=== PATIENT | female | born 1940 | race Caucasian/White ===

== ENCOUNTER 2018-04-12 17:47 | Emergency (ER) | payer MEDICARE, BC ==
[2018-04-12 17:57] VITALS: BP 141/77
--- NOTE | 2018-04-12 21:29 | EDM.PDOC ---
ED HPI GENERAL MEDICAL PROBLEM - General Chief Complaint: Fever Stated Complaint: FEVER WITH CHEMO Time Seen by Provider: 04/12/18 18:53 Source of Information: Reports: Patient History Limitations: Reports: No Limitations - History of Present Illness INITIAL COMMENTS - FREE TEXT/NARRATIVE: The patient presents with a fever. She has a history of leukemia and she is on chemotherapy. She had chemotherapy today and her temp was 99.1. She went home and took a nap and when she woke up it was 100.8. Her temp was 100.3 here without any treatment. She said she had a transfusion a few days ago. She has chills. She has a slight cough. She denies chest pain, shortness of breath, abdominal pain, nausea or vomiting. She has no dysuria or hematuria. Onset: Gradual Duration: Hour(s): Severity: Mild Improves with: Reports: None Worsens with: Reports: None Associated Symptoms: Reports: Cough, Fever/Chills. Denies: Chest Pain, Headaches, Nausea/Vomiting, Shortness of Breath - Related Data Allergies Allergy/AdvReac Type Severity Reaction Status Date / Time latex Allergy Rash Verified 09/05/16 15:06 palm oil Allergy Cannot Verified 03/27/18 08:03 Remember Penicillins Allergy Cannot Verified 09/05/16 15:06 Remember pollen extracts Allergy Cannot Verified 03/27/18 08:03 Remember Home Meds: Home Meds Acetaminophen [Tylenol] 1 - 2 tab PO Q6H PRN 04/12/18 [History] Acyclovir [Zovirax] 400 mg PO BID 04/12/18 [History] Allopurinol [Zyloprim] 300 mg PO DAILY 04/12/18 [History] Decitabine [Dacogen] 1 applic IV ASDIRECTED 04/12/18 [History] Fluconazole [Diflucan] 200 mg PO DAILY 04/12/18 [History] Levofloxacin 500 mg PO DAILY 04/12/18 [History] Levofloxacin [Levaquin] 750 mg PO DAILY #4 tab 04/12/18 [Rx] Ondansetron [Zofran] 8 mg PO Q8H PRN 04/12/18 [History] Promethazine [Phenergan] 25 mg TOP Q6H PRN 04/12/18 [History] Past Medical History HEENT History: Reports: Cataract, Impaired Vision Other HEENT History: Wears glasses Gastrointestinal History: Reports: GERD ROVING OR [employer]ER History: Reports: Oncologic (Cancer) History: Reports: Leukemia - Past Surgical History HEENT Surgical History: Reports: Cataract Surgery GI Surgical History: Reports: Appendectomy, Cholecystectomy Female Surgical History: Reports: Hysterectomy Musculoskeletal Surgical History: Reports: Knee Replacement Social & Family History - Tobacco Use Smoking Status *Q: Never Smoker - Caffeine Use Caffeine Use: Reports: Coffee, Tea - Recreational Drug Use Recreational Drug Use: No ED ROS GENERAL - Review of Systems Review Of Systems: See Below Constitutional: Reports: Fever, Chills HEENT: Reports: No Symptoms Respiratory: Reports: Cough. Denies: Shortness of Breath Cardiovascular: Reports: No Symptoms Endocrine: Reports: No Symptoms GI/Abdominal: Reports: No Symptoms : Reports: No Symptoms Musculoskeletal: Reports: No Symptoms ED EXAM, SEPSIS - Physical Exam Exam: See Below Exam Limited By: No Limitations General Appearance: Alert, No Apparent Distress Ears: Normal External Exam Nose: Normal Inspection Head: Atraumatic, Normocephalic Neck: Normal Inspection Respiratory/Chest: No Respiratory Distress, Lungs Clear, Normal Breath Sounds Cardiovascular: Regular Rate, Rhythm, No Edema, No Murmur GI/Abdominal Exam: Soft, Non-Tender, No Organomegaly, No Mass Back: Normal Inspection Extremities: Normal Inspection Neurological: Alert, Oriented, No Motor/Sensory Deficits Course - Vital Signs Last Recorded V/S: Last Vital Signs Temp 100.3 F 04/12/18 17:55 Pulse 89 04/12/18 17:55 Resp 20 04/12/18 17:55 BP 141/77 H 04/12/18 17:55 Pulse Ox 97 04/12/18 17:55 - Orders/Labs/Meds Orders: Active Orders 24 hr Category Date Time Status CXR [Chest 2V] [CR] Stat Exams 04/12/18 19:12 Taken CULTURE BLOOD [BC] Stat Lab 04/12/18 19:36 Received CULTURE BLOOD [BC] Stat Lab 04/12/18 19:44 Received UA W/MICROSCOPIC [URIN] Stat Lab 04/12/18 21:00 Ordered Blood Culture x2 Reflex Set [OM.PC] Stat Oth 04/12/18 19:12 Ordered Labs: Laboratory Tests 04/12/18 04/12/18 04/12/18 Range/Units 19:36 19:36 21:00 WBC 1.41 L* (3.98-10.04) K/mm3 RBC 3.05 L (3.98-5.22) M/mm3 Hgb 9.4 L (11.2-15.7) gm/L Hct 27.5 L (34.1-44.9) % MCV 90.2 (79.4-94.8) fl MCH 30.8 (25.6-32.2) pg MCHC 34.2 (32.2-35.5) g/dl RDW Std Deviation 47.7 H (36.4-46.3) fL Plt Count 24 L* (182-369) K/mm3 Neut % (Auto) 0 L (34.0-71.1) % Lymph % (Auto) 69.5 H (19.3-51.7) % [place] % (Auto) 29.8 H (4.7-12.5) % Eos % (Auto) 0.7 (0.7-5.8) Baso % (Auto) 0.0 L (0.1-1.2) % Neut # (Auto) 0.00 L (1.56-6.13) K/mm3 Lymph # (Auto) 0.98 L (1.18-3.74) K/mm3 [place] # (Auto) 0.42 H (0.24-0.36) K/mm3 Eos # (Auto) 0.01 L (0.04-0.36) K/mm3 Baso # (Auto) 0.00 L (0.01-0.08) K/mm3 Manual Slide Review Abnormal smear Sodium 138 (136-145) mEq/L Potassium 3.7 (3.5-5.1) mEq/L Chloride 104 (98-107) mEq/L Carbon Dioxide 24 (21-32) mEq/L Anion Gap 13.7 (5-15) BUN 18 (7-18) mg/dL Creatinine 1.0 (0.55-1.02) mg/dL Est Cr Clr Drug Dosing 43.40 mL/min Estimated GFR (MDRD) 54 (>60) mL/min BUN/Creatinine Ratio 18.0 (14-18) Glucose 115 (83-115) mg/dL Calcium 8.8 (8.5-10.1) mg/dL Total Bilirubin 0.7 (0.2-1.0) mg/dL AST 12 L (15-37) U/L ALT 11 L (14-59) U/L Alkaline Phosphatase 97 (46-116) U/L C-Reactive Protein 10.7 H* (<1.0) mg/dL Total Protein 7.6 (6.4-8.2) g/dl Albumin 3.3 L (3.4-5.0) g/dl Globulin 4.3 gm/dL Albumin/Globulin Ratio 0.8 L (1-2) Urine Color Yellow (Yellow) Urine Appearance Clear (Clear) Urine pH 6.5 (5.0-8.0) Ur Specific [place] 1.015 (1.005-1.030) Urine Protein Negative (Negative) Urine Glucose (UA) Negative (Negative) Urine Ketones Negative (Negative) Urine Occult Blood Trace-intact H (Negative) Urine Nitrite Negative (Negative) Urine Bilirubin Negative (Negative) Urine Urobilinogen 0.2 (0.2-1.0) Ur Leukocyte Esterase Negative (Negative) Urine RBC 0-5 (0-5) /hpf Urine WBC 0-5 (0-5) /hpf Ur Epithelial Cells 0-5 (0-5) /hpf Urine Bacteria Rare (FEW) /hpf Urine Mucus Not seen (FEW) /hpf - Re-Assessments/Exams Free Text/Narrative Re-Assessment/Exam: 04/12/18 21:29 I ordered a CBC, CMP, CXR, UA and blood cultures. Her WBC is low at 1.41. It was lower 4 days ago at 1.2. Her Hgb has improved to 9.4 from 7.5 a couple days ago. Her platelets have gone down lower to 24 from 30. Her CMP looks good. Her CRP was elevated at 10.7. Her UA shows no UTI. Her CXR shows a right upper lobe infiltrate. Her oxygen saturations were good at 97%. She does not want to be admitted. I called [facility] in [place] and Dr Anaya was not on. That is her oncologist but Dr Gutierrez was and he said that was fine to treat her as an outpatient and he recommended levaquin. I will dive her a dose here and a prescription for more. Departure - Departure Time of Disposition: 21:35 Disposition: Home, Self-Care 01 Condition: Good Clinical Impression: Pneumonia Qualifiers: Pneumonia type: due to unspecified organism Laterality: right Lung location: upper lobe of lung Qualified Code(s): J18.1 - Lobar pneumonia, unspecified organism - Discharge Information Prescriptions: Levofloxacin [Levaquin] 750 mg PO DAILY #4 tab Referrals: Terry Javier MD [Primary Care Provider] - 1 Week Additional Instructions: Take the levaquin daily for 4 days. You had a dose tonight your can start the prescription tomorrow. Take tylenol or motrin for any fever. Please return if you are worse. Follow up with your doctor within a week. - My Orders Last 24 Hours: My Active Orders 04/12/18 19:12 CXR [Chest 2V] [CR] Stat Blood Culture x2 Reflex Set [OM.PC] Stat 04/12/18 19:36 CULTURE BLOOD [BC] Stat 04/12/18 19:44 CULTURE BLOOD [BC] Stat 04/12/18 21:00 UA W/MICROSCOPIC [URIN] Stat - Assessment/Plan Last 24 Hours: My Active Orders 04/12/18 19:12 CXR [Chest 2V] [CR] Stat Blood Culture x2 Reflex Set [OM.PC] Stat 04/12/18 19:36 CULTURE BLOOD [BC] Stat 04/12/18 19:44 CULTURE BLOOD [BC] Stat 04/12/18 21:00 UA W/MICROSCOPIC [URIN] Stat
[2018-04-12] MEDS ORDERED: Levofloxacin 750 MG Tab PO ONE (21:33)
--- NOTE | 2018-04-15 11:15 | CR ---
Chest: Two views of the chest were obtained. Comparison: Prior chest x-ray of 09/05/16. Parenchymal density is noted within the upper right chest. Lungs otherwise are clear. Infusion port is seen entering from the left side. Heart size is normal. Mild tortuosity of the thoracic aorta is seen. Diaphragms are flattened on the lateral view compatible with emphysematous change. Surgical clips are seen within the upper right abdomen. Impression: 1. Parenchymal density within the right upper chest most likely representing pneumonia. Recommend repeat study several weeks after clinical therapy is complete to make sure findings resolve. 2. Emphysematous change and other incidental findings. Diagnostic code #3
== END 2018-04-12 21:45 | disposition home or self-care (01) ==
LOC: JD.ED 17:47
DX: J18.9 Pneumonia, unspecified organism (principal); K21.9 Gastro-esophageal reflux disease without esophagitis; Z91.040 Latex allergy status; Z88.0 Allergy status to penicillin; Z91.048 Other nonmedicinal substance allergy status; Z79.899 Other long term (current) drug therapy
CPT/HCPCS: 36415; 71046; 80053; 81001; 85025; 86140; 87040; 99284; A9270

== ENCOUNTER 2018-04-19 20:55 | Emergency (ER) | payer MEDICARE, BC ==
[2018-04-19] MEDS ORDERED: Sodium Chloride 0.9% 1,000 ML IV ONE (21:28)
[2018-04-19] MEDS: Sodium Chloride 0.9% 10 ML Syringe FLUSH PRN ×2 (21:36→22:37)
--- NOTE | 2018-04-19 21:48 | EDM.PDOC ---
ED HPI GENERAL MEDICAL PROBLEM - General Chief Complaint: Chest Pain Stated Complaint: FEVER Time Seen by Provider: 04/19/18 21:39 Source of Information: Reports: Patient History Limitations: Reports: No Limitations - History of Present Illness INITIAL COMMENTS - FREE TEXT/NARRATIVE: 77-year-old female presents for evaluation and treatment of fever. Patient is currently being treated for AML. She is receiving chemotherapy this time. Oncologist is Dr. Anaya in [place]. She reports this evening she appreciated a fever, highest about 100.8 at home. She has not been taking Tylenol or Motrin. She is complaining of some pain to the right anterior lateral chest that radiates towards her sternum as well as some pain to her right back between her spine her shoulder blade. Reports lying down improves the back pain. Reports a nonproductive cough. She denies any shortness of breath. No nausea, vomiting or abdominal pain. Reports some constipation which is not have been having blood in her stool. Patient was seen in the ED 1 week ago. She was found to have a pneumonia to her right upper lung. She is currently on Diflucan, acyclovir and Levaquin daily. She was started on Levaquin 750 mg for 5 days. She has completed this. She continues to take her Levaquin 500 mg daily that she was on prophylactically. Chest Pain Score (Numeric/FACES): 5 Right Shoulder Pain Score (Numeric/FACES): 6 - Related Data Allergies Allergy/AdvReac Type Severity Reaction Status Date / Time latex Allergy Rash Verified 04/19/18 21:06 palm oil Allergy Cannot Verified 04/19/18 21:06 Remember Penicillins Allergy Cannot Verified 04/19/18 21:06 Remember pollen extracts Allergy Cannot Verified 04/19/18 21:06 Remember Home Meds: Home Meds Acetaminophen [Tylenol] 1 - 2 tab PO Q6H PRN 04/12/18 [History] Acyclovir [Zovirax] 400 mg PO BID 04/12/18 [History] Allopurinol [Zyloprim] 300 mg PO DAILY 04/12/18 [History] Decitabine [Dacogen] 1 applic IV ASDIRECTED 04/12/18 [History] Fluconazole [Diflucan] 200 mg PO DAILY 04/12/18 [History] Levofloxacin 500 mg PO DAILY 04/12/18 [History] Levofloxacin [Levaquin] 750 mg PO DAILY #4 tab 04/12/18 [Rx] Ondansetron [Zofran] 8 mg PO Q8H PRN 04/12/18 [History] Promethazine [Phenergan] 25 mg TOP Q6H PRN 04/12/18 [History] Past Medical History HEENT History: Reports: Cataract, Impaired Vision Other HEENT History: Wears glasses Gastrointestinal History: Reports: GERD [employer]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 Denies: Shortness of Breath, Sputum Cardiovascular: Reports: Chest Pain (right anteriorlateral chest) GI/Abdominal: Denies: Abdominal Pain, Nausea, Vomiting Musculoskeletal: Reports: Back Pain (upper back in between spine and shoulder blade) ED EXAM, GENERAL - Physical Exam Exam: See Below Exam Limited By: No Limitations General Appearance: Alert, WD/WN, No Apparent Distress Eye Exam: Bilateral Eye: Normal Inspection Nose: Normal Inspection Throat/Mouth: Normal Inspection, Normal Lips, Normal Voice, No Airway Compromise Respiratory/Chest: No Respiratory Distress, Lungs Clear, Normal Breath Sounds Cardiovascular: Normal Peripheral Pulses, Regular Rate, Rhythm, No Murmur Neurological: Alert, Oriented, Normal Cognition Psychiatric: Normal Affect, Normal Mood Skin Exam: Normal Color, Diaphoretic EKG INTERPRETATION EKG Date: 04/19/18 Time: 21:05 Rhythm: NSR Rate (Beats/Min): 84 [place]: Normal P-Wave: Present QRS: Normal ST-T: Normal QT: Normal EKG Interpretation Comments: NSR at84 bpm[address] No acute [address]-T wave changes. No ischemia noted. Old anteroseptal Mi. Reviewed by myself and Dr. Larose. Course - Vital Signs Last Recorded V/S: Last Vital Signs Temp 98.5 F 04/19/18 21:06 Pulse 76 04/19/18 23:00 Resp 27 H 04/19/18 23:00 BP 127/96 H 04/19/18 21:06 Pulse Ox 97 04/19/18 23:00 - Orders/Labs/Meds Orders: Active Orders 24 hr Category Date Time Status Cardiac Monitoring [RC] . DIRECTED Care 04/19/18 21:28 Active Peripheral IV Care [RC] . DIRECTED Care 04/19/18 21:30 Active Chest PE [Ang Chest] [CT] Stat Exams 04/19/18 21:32 Taken CULTURE BLOOD [BC] Stat Lab 04/19/18 21:40 Received CULTURE BLOOD [BC] Stat Lab 04/19/18 21:50 Received CULTURE URINE [RM] Stat Lab 04/20/18 00:07 Ordered RED BLOOD CELLS LP [BBK] Stat Lab 04/20/18 00:23 Ordered TYPE AND SCREEN [BBK] Stat Lab 04/20/18 00:11 Ordered UA W/MICROSCOPIC [URIN] Stat Lab 04/20/18 00:07 Ordered Cefepime [Maxipime in D5W 2 GM/50 ML] 2 gm Med 04/20/18 00:11 Ordered Premix Bag 1 bag IV ONETIME Sodium Chloride 0.9% [Normal Saline] 250 ml Med 04/19/18 22:00 Active IV ASDIRECTED Sodium Chloride 0.9% [Saline Flush] Med 04/19/18 21:28 Active 10 ml FLUSH ASDIRECTED PRN Vancomycin 1 gm Med 04/20/18 00:20 Ordered Sodium Chloride 0.9% [Normal Saline] 250 ml IV ONETIME Blood Culture x2 Reflex Set [OM.PC] Stat Oth 04/19/18 21:25 Ordered Peripheral IV Insertion Adult [OM.PC] Routine Oth 04/19/18 21:28 Ordered Transfuse Red Blood Cells [COMM] Stat Oth 04/20/18 00:23 Ordered Transfuse Red Blood Cells [COMM] Stat Oth 04/20/18 00:23 Ordered Medication Orders Sodium Chloride (Normal Saline) 250 mls @ 75 mls/hr IV ASDIRECTED LESIA Cefepime HCl 2 gm/ Premix 50 mls @ 100 mls/hr IV ONETIME ONE Stop: 04/20/18 00:40 Vancomycin HCl 1 gm/ Sodium (Chloride) 250 mls @ 250 mls/hr IV ONETIME ONE Stop: 04/20/18 01:19 Sodium Chloride (Saline Flush) 10 ml FLUSH ASDIRECTED PRN PRN Reason: Keep Vein Open Last Admin: 04/19/18 22:37 Dose: 10 ml Admin: 04/19/18 21:36 Dose: 10 ml Labs: Laboratory Tests 04/19/18 04/19/18 04/19/18 Range/Units 21:40 21:40 21:40 WBC 0.94 L* (3.98-10.04) K/mm3 RBC 2.44 L (3.98-5.22) M/mm3 Hgb 7.5 L (11.2-15.7) gm/L Hct 22.0 L (34.1-44.9) % MCV 90.2 (79.4-94.8) fl MCH 30.7 (25.6-32.2) pg MCHC 34.1 (32.2-35.5) g/dl RDW Std Deviation 44.5 (36.4-46.3) fL Plt Count 14 L* (182-369) K/mm3 Neutrophils % (Manual) 4 L (40-60) % Band Neutrophils % 0 (0-10) % Lymphocytes % (Manual) 96 H (20-40) % Atypical Lymphs % 0 % Monocytes % (Manual) 0 L (2-10) % Eosinophils % (Manual) 0 L (0.7-5.8) % Basophils % (Manual) 0 L (0.1-1.2) Platelet Estimate Marked dec Plt Morphology Comment Normal RBC Morph Comment Normal Sodium 134 L (136-145) mEq/L Potassium 3.6 (3.5-5.1) mEq/L Chloride 101 (98-107) mEq/L Carbon Dioxide 24 (21-32) mEq/L Anion Gap 12.6 (5-15) BUN 17 (7-18) mg/dL Creatinine 1.0 (0.55-1.02) mg/dL Est Cr Clr Drug Dosing 43.40 mL/min Estimated GFR (MDRD) 54 (>60) mL/min BUN/Creatinine Ratio 17.0 (14-18) Glucose 135 H (83-115) mg/dL Lactic Acid 0.6 (0.4-2.0) mmol/L Calcium 8.3 L (8.5-10.1) mg/dL Total Bilirubin 0.4 (0.2-1.0) mg/dL AST 12 L (15-37) U/L ALT 15 (14-59) U/L Alkaline Phosphatase 88 (46-116) U/L C-Reactive Protein 17.5 H* (<1.0) mg/dL Total Protein 6.8 (6.4-8.2) g/dl Albumin 2.8 L (3.4-5.0) g/dl Globulin 4.0 gm/dL Albumin/Globulin Ratio 0.7 L (1-2) Meds: Medications Generic Name Dose Route Start Last Admin Trade Name Freq PRN Reason Stop Dose Admin Sodium Chloride 250 mls @ 75 mls/hr 04/19/18 22:00 Normal Saline IV ASDIRECTED LESIA Cefepime HCl 2 gm/ Premix 50 mls @ 100 mls/hr 04/20/18 00:11 IV 04/20/18 00:40 ONETIME ONE Vancomycin HCl 1 gm/ Sodium 250 mls @ 250 mls/hr 04/20/18 00:20 Chloride IV 04/20/18 01:19 ONETIME ONE Sodium Chloride 10 ml 04/19/18 21:28 04/19/18 22:37 Saline Flush FLUSH 10 ml ASDIRECTED PRN Administration Keep Vein Open Discontinued Medications Generic Name Dose Route Start Last Admin Trade Name Freq PRN Reason Stop Dose Admin Sodium Chloride 1,000 mls @ 500 mls/hr 04/19/18 21:28 04/19/18 21:36 Normal Saline IV 04/19/18 23:27 500 mls/hr ONETIME ONE Administration Ceftriaxone Sodium 2 gm/ 100 mls @ 100 mls/hr 04/19/18 22:49 04/19/18 22:55 Sodium Chloride IV 04/19/18 23:48 100 mls/hr ONETIME ONE Administration Iopamidol 100 ml 04/19/18 21:50 04/19/18 22:37 Isovue-370 (76%) IVPUSH 04/19/18 21:51 100 ml ONETIME ONE Administration Vancomycin HCl 1 dose 04/20/18 00:16 Pharmacy To Dose - Vancomycin .XX 04/20/18 00:17 ONETIME ONE - Radiology Interpretation Free Text/Narrative:: CT of the chest with IV contrast impression per vrad: left upper lobe area of atelectasis. Large right upp lobe infiltrate with right hilar lymphadenopathy. This most likely represents a pneumonia. Clinical correlation as well as followup x-rays are suggested. No pulmonary emboli. - Re-Assessments/Exams Free Text/Narrative Re-Assessment/Exam: 04/20/18 00:05 spoke with the patient and her family. I do feel she is to sick to go home tonight and needs admission. Spoke with Dr. Osborne hospitalist on, feels she would be better served in [place]. Patient is agreeable to going to [place]. Patient is a full code. 04/20/18 00:[address] Lamar agrees to accept the patient. She will go by ground ambulance. Asked that we give vancomycin and cefepime prior to leaving. He asked that we give her 1 unit of blood. I spoke with oncologist, Dr. Morgan. [place] that her platelets are low but would not need to be transferred until they're below 10. She will likely need transfusion tomorrow. I did inform them that we do not have any platelets here. Plan will be to give the vancomycin and cefepime prior to leaving. When she has the blood going we will send to [place]. Departure - Departure Time of Disposition: 00:33 Disposition: DC/Tfer to [facility] 02 Condition: Serious Clinical Impression: Pancytopenia due to chemotherapy Pneumonia Qualifiers: Pneumonia type: due to unspecified organism Laterality: right Lung location: upper lobe of lung Qualified Code(s): J18.1 - Lobar pneumonia, unspecified organism - Discharge Information *PRESCRIPTION DRUG MONITORING PROGRAM REVIEWED*: No *COPY OF PRESCRIPTION DRUG MONITORING REPORT IN PATIENT FAVIOLA: No Referrals: Bryson Anaya MD [Primary Care Provider] - Forms: ED Department Discharge Additional Instructions: Patient to go by ground ambulance to [facility] in [place]. Dr. Machuca accepting. - My Orders Last 24 Hours: My Active Orders 04/19/18 21:25 Blood Culture x2 Reflex Set [OM.PC] Stat 04/19/18 21:28 Cardiac Monitoring [RC] . DIRECTED Sodium Chloride 0.9% [Saline Flush] 10 ml FLUSH ASDIRECTED PRN Peripheral IV Insertion Adult [OM.PC] Routine 04/19/18 21:30 Peripheral IV Care [RC] . DIRECTED 04/19/18 21:32 Chest PE [Ang Chest] [CT] Stat 04/19/18 21:40 CULTURE BLOOD [BC] Stat 04/19/18 21:50 CULTURE BLOOD [BC] Stat 04/19/18 22:00 Sodium Chloride 0.9% [Normal Saline] 250 ml IV ASDIRECTED 04/20/18 00:07 CULTURE URINE [RM] Stat UA W/MICROSCOPIC [URIN] Stat 04/20/18 00:11 TYPE AND SCREEN [BBK] Stat Cefepime [Maxipime in D5W 2 GM/50 ML] 2 gm Premix Bag 1 bag IV ONETIME 04/20/18 00:20 Vancomycin 1 gm Sodium Chloride 0.9% [Normal Saline] 250 ml IV ONETIME 04/20/18 00:23 RED BLOOD CELLS LP [BBK] Stat Transfuse Red Blood Cells [COMM] Stat Transfuse Red Blood Cells [COMM] Stat - Assessment/Plan Last 24 Hours: My Active Orders 04/19/18 21:25 Blood Culture x2 Reflex Set [OM.PC] Stat 04/19/18 21:28 Cardiac Monitoring [RC] . DIRECTED Sodium Chloride 0.9% [Saline Flush] 10 ml FLUSH ASDIRECTED PRN Peripheral IV Insertion Adult [OM.PC] Routine 04/19/18 21:30 Peripheral IV Care [RC] . DIRECTED 04/19/18 21:32 Chest PE [Ang Chest] [CT] Stat 04/19/18 21:40 CULTURE BLOOD [BC] Stat 04/19/18 21:50 CULTURE BLOOD [BC] Stat 04/19/18 22:00 Sodium Chloride 0.9% [Normal Saline] 250 ml IV ASDIRECTED 04/20/18 00:07 CULTURE URINE [RM] Stat UA W/MICROSCOPIC [URIN] Stat 04/20/18 00:11 TYPE AND SCREEN [BBK] Stat Cefepime [Maxipime in D5W 2 GM/50 ML] 2 gm Premix Bag 1 bag IV ONETIME 04/20/18 00:20 Vancomycin 1 gm Sodium Chloride 0.9% [Normal Saline] 250 ml IV ONETIME 04/20/18 00:23 RED BLOOD CELLS LP [BBK] Stat Transfuse Red Blood Cells [COMM] Stat Transfuse Red Blood Cells [COMM] Stat
[2018-04-19] MEDS ORDERED: Iopamidol 755 Mg/ML 100 ML Bottle IVPUSH ONE (21:50)
[2018-04-19] MEDS ORDERED: Sodium Chloride 0.9% 250 ML IV SCH (22:00)
[2018-04-19] MEDS ORDERED: cefTRIAXone 2 GM in Sodium Chloride 0.9% 100 ML IV ONE (22:49)
[2018-04-20] MEDS ORDERED: Cefepime 2 GM in Premix Bag 1 BAG IV ONE (00:11)
[2018-04-20 01:44] VITALS: BP 112/75
--- NOTE | 2018-04-22 10:03 | CT ---
CT chest Technique: Multiple axial sections were obtained from above the lung apices inferiorly through the lung bases. Intravenous contrast was utilized. Study has been performed as a pulmonary angiogram protocol. Comparison: Prior CT chest performed as an angiogram protocol dated 09/05/16. Findings: Pulmonary arteries show no filling defects to indicate pulmonary embolism. Parenchymal density noted within the right upper lung. Minimal atelectasis within the left upper lung is noted. Minimal parenchymal density is seen within the left base as well as lingula which are felt to be due to small areas of scarring or atelectasis. Mediastinum and hilar regions show no adenopathy or mass. Mild coronary artery calcification is seen. No pericardial thickening is seen. Small hiatal hernia is noted. Small portion of the visualized upper abdominal structures shows prior cholecystectomy. No axillary adenopathy is seen. Bone window settings were reviewed showing scattered degenerative change within the spine. Impression: 1. Focal right upper lobe parenchymal density most likely due to pneumonia although follow-up recommended by chest x-ray after clinical therapy is complete to make sure findings resolve and does not represent other abnormality. 2. No findings of pulmonary embolism. Other incidental findings. Diagnostic code #9 I agree with preliminary report issued by [facility] ([facility] report finalized on 04/20/18, 12:17 AM Central Time)
== END 2018-04-20 02:14 ==
LOC: JD.ED 20:55
DX: J18.1 Lobar pneumonia, unspecified organism (principal); D61.810 Antineoplastic chemotherapy induced pancytopenia; K21.9 Gastro-esophageal reflux disease without esophagitis; Z91.040 Latex allergy status; Z79.899 Other long term (current) drug therapy; Z90.710 Acquired absence of both cervix and uterus
CPT/HCPCS: 36415; 36430; 71275; 80053; 81001; 83605; 85007; 85027; 86140; 86850; 86900; 86901; 86922; 87040; 87086; 93005; 96361; 96365; 96367; 96368; 99285; J0692; J0696; J3370; J7030; J7040; J7050; P9016; Q9967; 93010

== ENCOUNTER 2018-11-26 14:50 | Inpatient (IN) | payer MEDICARE, BC ==
[2018-11-26] MEDS ORDERED: Acetaminophen 325 MG Tab PO ONE (15:40)
[2018-11-26] MEDS ORDERED: Meropenem 1 GM in Sodium Chloride 0.9% 100 ML IV ONE (15:41)
[2018-11-26] MEDS ORDERED: Sodium Chloride 0.9% 1,000 ML IV ONE (15:48)
--- NOTE | 2018-11-26 17:13 | EDM.PDOC ---
ED HPI GENERAL MEDICAL PROBLEM - General Chief Complaint: Cardiovascular Problem Stated Complaint: TACHYCARDIA/FEVER Time Seen by Provider: 11/26/18 15:14 Source of Information: Reports: Patient, Provider History Limitations: Reports: No Limitations - History of Present Illness INITIAL COMMENTS - FREE TEXT/NARRATIVE: The patient presents from surgery for a fever, confusion and tachycardia. She has a history of AML. She is not being treated at this point. She is advanced but she is getting transfusions from Dr Anaya for anemia, leukopenia and thrombocytopenia. She was getting platelets and PRBCs when the fever started. She did get confused right away. Dr Anaya repeated some labs and her WBC was 0.8 and Hgb was 8.3. Her platelets were 4. Her CMP looked good. I called him and he recommended blood cultures and mirepenum until the cultures came back normal. She has no chest pain. She has been a little short of breath. She has no abdominal pain, nausea or vomiting. She has no dysuria. Onset: Sudden Duration: Hour(s): Severity: Moderate Improves with: Reports: None Worsens with: Reports: None Associated Symptoms: Reports: Fever/Chills. Denies: Chest Pain, Cough, Headaches, Nausea/Vomiting, Shortness of Breath - Related Data Allergies Allergy/AdvReac Type Severity Reaction Status Date / Time latex Allergy Rash Verified 11/26/18 11:45 palm oil Allergy Cannot Verified 11/26/18 11:45 Remember Penicillins Allergy Cannot Verified 11/26/18 11:45 Remember pollen extracts Allergy Cannot Verified 11/26/18 11:45 Remember Home Meds: Home Meds Acyclovir [Zovirax] 400 mg PO BID 04/12/18 [History] Fluconazole [Diflucan] 200 mg PO DAILY 04/12/18 [History] Levofloxacin 500 mg PO DAILY 04/12/18 [History] Past Medical History HEENT History: Reports: Impaired Vision Other HEENT History: Wears glasses Gastrointestinal History: Reports: GERD [employer] History: Reports: Endocrine/Metabolic History: Reports: Other (See Below) Oncologic (Cancer) History: Reports: Leukemia - Past Surgical History HEENT Surgical History: Reports: Cataract Surgery, Tonsillectomy Cardiovascular Surgical History: Reports: Other (See Below) GI Surgical History: Reports: Appendectomy, Cholecystectomy Female Surgical History: Reports: Hysterectomy, Salpingo-Oophorectomy Musculoskeletal Surgical History: Reports: Knee Replacement Oncologic Surgical History: Reports: Other (See Below) Social & Family History - Family History Family Medical History: Noncontributory - Tobacco Use Smoking Status *Q: Never Smoker - Caffeine Use Caffeine Use: Reports: Coffee - Recreational Drug Use Recreational Drug Use: No - Living Situation & Occupation Living situation: Reports: , Alone Occupation: Retired ED ROS GENERAL - Review of Systems Review Of Systems: See Below Constitutional: Reports: Fever, Chills HEENT: Reports: No Symptoms Respiratory: Reports: No Symptoms Cardiovascular: Reports: No Symptoms Endocrine: Reports: No Symptoms GI/Abdominal: Reports: No Symptoms : Reports: No Symptoms Musculoskeletal: Reports: No Symptoms ED EXAM, GENERAL - Physical Exam Exam: See Below Exam Limited By: No Limitations General Appearance: Alert, No Apparent Distress Ears: Normal External Exam Nose: Normal Inspection Head: Atraumatic, Normocephalic Neck: Normal Inspection Respiratory/Chest: No Respiratory Distress, Lungs Clear, Normal Breath Sounds Cardiovascular: Regular Rate, Rhythm, No Edema, No Murmur GI/Abdominal: Soft, Non-Tender, No Organomegaly, No Mass Neurological: Alert, Oriented, No Motor/Sensory Deficits Skin Exam: Rash (petichia) Course - Vital Signs Last Recorded V/S: Last Vital Signs Temp 100.2 F 11/26/18 15:06 Pulse 140 H 11/26/18 15:06 Resp 24 H 11/26/18 15:06 BP 140/78 11/26/18 15:06 Pulse Ox 96 11/26/18 15:06 - Orders/Labs/Meds Orders: Active Orders 24 hr Category Date Time Status Admission Status [Patient Status] [ADT] Routine ADT 11/26/18 17:15 Active CULTURE BLOOD [BC] Stat Lab 11/26/18 15:41 Ordered CULTURE BLOOD [BC] Stat Lab 11/26/18 15:41 Ordered Blood Culture x2 Reflex Set [OM.PC] Stat Oth 11/26/18 15:41 Ordered Meds: Medications Discontinued Medications Generic Name Dose Route Start Last Admin Trade Name Freq PRN Reason Stop Dose Admin Acetaminophen 325 mg 11/26/18 15:40 11/26/18 16:26 Tylenol PO 11/26/18 15:41 325 mg NOW ONE Administration Meropenem 1 gm/ Sodium 100 mls @ 200 mls/hr 11/26/18 15:41 11/26/18 16:24 Chloride IV 11/26/18 16:10 200 mls/hr ONETIME ONE Administration Sodium Chloride 1,000 mls @ 1,000 mls/hr 11/26/18 15:48 11/26/18 16:22 Normal Saline IV 11/26/18 16:47 1,000 mls/hr ONETIME ONE Administration - Re-Assessments/Exams Free Text/Narrative Re-Assessment/Exam: 11/26/18 17:22 Her port was accessed. I ordered an influenza and blood cultures alone with merapenum. I called Dr Peter and he agreed to the admission. Departure - Departure Time of Disposition: 17:25 Disposition: Admitted As Inpatient 65 Condition: Serious Clinical Impression: Neutropenic fever, Pancytopenia, Tachycardia Referrals: Tony Anderson MD [Primary Care Provider] - Forms: ED Department Discharge - My Orders Last 24 Hours: My Active Orders 11/26/18 15:41 CULTURE BLOOD [BC] Stat CULTURE BLOOD [BC] Stat Blood Culture x2 Reflex Set [OM.PC] Stat 11/26/18 17:15 Admission Status [Patient Status] [ADT] Routine - Assessment/Plan Last 24 Hours: My Active Orders 11/26/18 15:41 CULTURE BLOOD [BC] Stat CULTURE BLOOD [BC] Stat Blood Culture x2 Reflex Set [OM.PC] Stat 11/26/18 17:15 Admission Status [Patient Status] [ADT] Routine
--- NOTE | 2018-11-26 20:21 | PCM.HP ---
H&P History of Present Illness - General Date of Service: 11/26/18 Admit Problem/Dx: Admission Diagnosis/Problem Admission Diagnosis/Problem Neutropenia Source of Information: Patient, Old Records, Provider History Limitations: Reports: No Limitations - History of Present Illness Initial Comments - Free Text/Narative: This is a 78 yo female with past medical h/o AML (currently not being treated), GERD, appendectomy, cholecystectomy who comes in for possible transfusion reaction. The patient c/o fever, confusion, tachycardia, SOB. She was getting platelets and PRBCs when the fever and confusion started. She is getting transfusions from Dr. Anaya for anemia, leukopenia and thrombocytopenia. She denies and chest pain, abdominal pain, N/V/D, or other GI/ complaints. Initial workup done with Dr. Anaya. CBC remarkable for WBC 0.8, Hgb 8.3, Plt 4. Her chemistry was unremarkable. Influenza negative in the ED. She is subsequently admitted to the medical floor. She is a Full Code. PCP is Dr. Anderson. - Related Data Allergies/Adverse Reactions: Allergies Allergy/AdvReac Type Severity Reaction Status Date / Time latex Allergy Rash Verified 11/26/18 17:41 palm oil Allergy Cannot Verified 11/26/18 17:41 Remember Penicillins Allergy Cannot Verified 11/26/18 17:41 Remember pollen extracts Allergy Cannot Verified 11/26/18 17:41 Remember Home Medications: Home Meds Acyclovir [Zovirax] 400 mg PO BID 04/12/18 [History] Fluconazole [Diflucan] 200 mg PO DAILY 04/12/18 [History] Levofloxacin 500 mg PO DAILY 04/12/18 [History] Past Medical History HEENT History: Reports: Impaired Vision Other HEENT History: Wears glasses Gastrointestinal History: Reports: GERD [employer] History: Reports: Endocrine/Metabolic History: Reports: Other (See Below) Oncologic (Cancer) History: Reports: Leukemia - Past Surgical History HEENT Surgical History: Reports: Cataract Surgery, Tonsillectomy Cardiovascular Surgical History: Reports: Other (See Below) GI Surgical History: Reports: Appendectomy, Cholecystectomy Female Surgical History: Reports: Hysterectomy, Salpingo-Oophorectomy Musculoskeletal Surgical History: Reports: Knee Replacement Oncologic Surgical History: Reports: Other (See Below) Social & Family History - Family History Family Medical History: Noncontributory - Tobacco Use Smoking Status *Q: Never Smoker - Caffeine Use Caffeine Use: Reports: Coffee - Recreational Drug Use Recreational Drug Use: No - Living Situation & Occupation Living situation: Reports: , Alone Occupation: Retired H&P Review of Systems - Review of Systems: Review Of Systems: See Below General: Reports: Fever, Chills HEENT: Reports: Other (jaw pain, black tongue) Pulmonary: Reports: No Symptoms Cardiovascular: Reports: No Symptoms Gastrointestinal: Reports: No Symptoms Genitourinary: Reports: No Symptoms Musculoskeletal: Reports: No Symptoms Skin: Reports: No Symptoms Psychiatric: Reports: No Symptoms Neurological: Reports: No Symptoms Hematologic/Lymphatic: Reports: Anemia Immunologic: Reports: No Symptoms Exam - Exam Exam: See Below - Vital Signs Vital Signs: Last Vital Signs Temp 97.7 F 11/26/18 19:33 Pulse 75 11/26/18 19:33 Resp 22 H 11/26/18 19:33 BP 115/65 11/26/18 19:33 Pulse Ox 97 11/26/18 19:33 Weight: 131 lb 9.6 oz - Exam Quality Assessment: DVT Prophylaxis General: Alert, Oriented, 4 HEENT: Conjunctiva Clear, EACs Clear, EOMI, Hearing Intact, Mucosa Moist & [place] , Nares Patent, Normal Nasal Septum, Posterior Pharynx Clear, Other (tongue is black), PERRLA Neck: Supple, Trachea Midline, 2 Lungs: Clear to Auscultation, Normal Respiratory Effort Cardiovascular: Regular Rate, Regular Rhythm GI/Abdominal Exam: Normal Bowel Sounds, Soft, Non-Tender, No Organomegaly, No Distention, No Abnormal Bruit, No Mass, Pelvis Stable (Female) Exam: Deferred Rectal (Female) Exam: Deferred Back Exam: Normal Inspection Extremities: Normal Inspection, Normal Range of Motion, Non-Tender, No Pedal Edema, Normal Capillary Refill Peripheral Pulses: 2+: Posterior Tibial (L), Posterior Tibial (R), Dorsalis Pedis (L), Dorsalis Pedis (R) Skin: Petechia (L arm and leg) Neurological: Cranial Nerves Intact (grossly) Neuro Extensive - Mental Status: Alert, Oriented x3, Normal Mood/Affect, Normal Cognition, Memory Intact Psychiatric: Alert, Normal Affect, Normal Mood - Patient Data Venkata Results Last 24 hrs: Microbiology 11/26/18 16:07 Influenza Type A Antigen Screen - Final Nasopharyngeal Swab NEGATIVE INFLUENZA A VIRUS AG Influenza Type B Antigen Screen - Final NEGATIVE INFLUENZA B VIRUS AG - Problem List (1) Neutropenic fever SNOMED Code(s): 331656157 ICD Code: D70.9 - NEUTROPENIA, UNSPECIFIED; R50.81 - FEVER PRESENTING WITH CONDITIONS CLASSIFIED ELSEWHERE Status: Acute Priority: High Current Visit : Yes (2) Pancytopenia SNOMED Code(s): 880695975 ICD Code: D61.818 - OTHER PANCYTOPENIA Status: Acute Priority: High Current Visit: Yes (3) Tachycardia SNOMED Code(s): 9129503 ICD Code: R00.0 - TACHYCARDIA, UNSPECIFIED Status: Acute Priority: High Current Visit: Yes Problem List Initiated/Reviewed/Updated: Yes Orders Last 24hrs: Active Orders 24 hr Category Date Time Status Admission Status [Patient Status] [ADT] Routine ADT 11/26/18 17:15 Active CULTURE BLOOD [BC] Stat Lab 11/26/18 15:41 Ordered CULTURE BLOOD [BC] Stat Lab 11/26/18 15:41 Ordered Blood Culture x2 Reflex Set [OM.PC] Stat Oth 11/26/18 15:41 Ordered Assessment/Plan Comment:: Assessment/Plan: Acute: Neutropenic Fever * 2/2 plt infusion reaction * She was getting platelets and PRBCs when the fever and confusion started * Risk factor: h/o infusion reaction, AML * Oncologist Dr. Anaya recommendations per ED: * Blood cultures pending * Meropenem until the cultures came back normal Tachycardia * 2/2 above * Monitor Pancytopenia * Acute on Chronic * 2/2 AML * Dr. Anaya labs showed WBC 0.8, Hgb 8.3, plts 4 * Gets transfusions from Dr. Anaya for anemia, leukopenia and thrombocytopenia Jaw Pain/Black tongue * Pt c/o jaw pain, "blisters" inside her mouth, black tongue that brushing does not get rid of * She is unsure for how long she has had these symptoms * Difficult to eat hard foods d/t pain; denies sensitivity to hot/cold * Unsure of last visit to PCP or dentist * States oral care is good, except difficult d/t bleeding * Recommend f/u with PCP and dentist Chronic: AML (currently not being treated) Anemia, Leukopenia and Thrombocytopenia GERD h/o appendectomy h/o cholecystectomy Plan: Admit to Medical Floor Neutropenic Precautions Routine AM Labs Heart Healthy Diet DVT/GI prophylaxis CM/SW PT/OT Code Status: Full Code; PCP: Dr. Anderson
[2018-11-26] MEDS ORDERED: Acetaminophen 325 MG Tab PO PRN (20:47)
[2018-11-26] MEDS ORDERED: Albuterol/Ipratropium 3.0-0.5 MG/3 ML Neb Soln NEB PRN (20:47)
[2018-11-26] MEDS ORDERED: Magnesium Hydroxide 400 MG/5 ML Susp 30 ML Cup PO PRN (20:47)
[2018-11-26] MEDS ORDERED: Docusate Sodium 100 MG Cap PO PRN (20:47)
[2018-11-26] MEDS ORDERED: HYDROmorphone 1 MG/ML Syringe IVPUSH PRN (20:47)
[2018-11-26] MEDS ORDERED: Bisacodyl 5 MG Tab PO PRN (20:47)
[2018-11-26] MEDS ORDERED: Polyethylene Glycol 3350 Powder 17 GM Packet PO PRN (20:47)
[2018-11-26] MEDS ORDERED: Albuterol 0.083% 2.5 MG/3 ML Neb Soln NEB PRN (20:47)
[2018-11-26] MEDS ORDERED: Promethazine 6.25 MG in Sodium Chloride 0.9% 50 ML IV PRN (21:08)
[2018-11-26] MEDS ORDERED: Promethazine 25 MG Tab PO PRN (21:08)
[2018-11-26] MEDS: Saccharomyces Boulardii (Probiotic) 250 MG Cap PO SCH (22:09)
[2018-11-26] MEDS: Famotidine 20 MG Tab PO SCH (22:09)
[2018-11-26] MEDS ORDERED: Metoprolol Tartrate 5 MG/5 ML SDV IVPUSH PRN (23:47)
[2018-11-27] MEDS ORDERED: Meropenem 1 GM in Sodium Chloride 0.9% 100 ML IV SCH ×2
[2018-11-27] MEDS: Meropenem Premix 500 MG in Premix Bag 1 BAG IV SCH ×3 (01:15→15:24)
[2018-11-27] MEDS: Sodium Chloride 0.9% 1,000 ML IV SCH ×2 (01:15→11:53)
[2018-11-27] MEDS ORDERED: diphenhydrAMINE 50 MG/ML SDV IVPUSH ONE (09:23)
[2018-11-27] MEDS ORDERED: Famotidine 20 MG/2 ML SDV IVPUSH ONE (09:23)
--- NOTE | 2018-11-27 09:25 | PCM.SN ---
- Free Text/Narrative Note: Patient seen and examined with daughter at bedside. Updated them abut her labs, clinical status as well as answered all their questions. She reports tongue and neck swelling but not appreciable on examination. She is however started on intravenous steroid, H1B and H2B. Informed SW/CM to further inquire abut her code status. She may be able to go once blood culture is negative.
[2018-11-27] MEDS: Famotidine 20 MG Tab PO SCH ×2 (09:38→20:49)
[2018-11-27] MEDS: Fluconazole 100 MG Tab PO SCH (09:40)
[2018-11-27] MEDS: Acyclovir 200 MG Cap PO SCH ×2 (09:40→20:48)
[2018-11-27] MEDS: Saccharomyces Boulardii (Probiotic) 250 MG Cap PO SCH ×2 (09:40→20:49)
[2018-11-27] MEDS: Dexamethasone 4 MG/ML SDV IVPUSH SCH ×2 (09:56→17:09)
[2018-11-27] MEDS: Furosemide 20 MG/2 ML VIAL IVPUSH ONE (16:57)
--- NOTE | 2018-11-27 20:44 | PCM.PN ---
- General Info Date of Service: 11/27/18 Admission Dx/Problem (Free Text): Admission Diagnosis/Problem Admission Diagnosis/Problem Neutropenia Subjective Update: In to see Vonnie. She is laying in bed. She has no current complaints. Blood cultures are negative after 24 hours. Can likely D/C once 48H negative. Hgb continues to drop and Dr. Anaya recommends blood transfusion. Unfortunately d/t antibodies, we must order blood from out of town which may take a couple of days. She also c/o tongue and neck swelling today (not appreciable on exam), so intravenous steroid, H1B and H2B started. No concerns from nursing. Functional Status: Reports: Pain Controlled, Tolerating Diet, Ambulating, Urinating - Review of Systems General: Reports: No Symptoms. Denies: Fever, Chills HEENT: Reports: Other (jaw pain, black tongue) Pulmonary: Reports: No Symptoms Cardiovascular: Reports: No Symptoms Gastrointestinal: Reports: No Symptoms Genitourinary: Reports: No Symptoms Musculoskeletal: Reports: No Symptoms Skin: Reports: No Symptoms Neurological: Reports: No Symptoms Psychiatric: Reports: No Symptoms - Patient Data Vitals - Most Recent: Last Vital Signs Temp 98.4 F 11/27/18 15:57 Pulse 73 11/27/18 15:57 Resp 18 11/27/18 15:57 BP 118/61 11/27/18 15:57 Pulse Ox 94 L 11/27/18 15:57 Weight - Most Recent: 135 lb 11.2 oz I&O - Last 24 Hours: Intake & Output 11/27/18 11/27/18 11/27/18 06:59 14:59 22:59 Intake Total 851 690 8939 Output Total 200 1000 Balance 473 061 8893 Lab Results Last 24 Hours: Laboratory Results - last 24 hr 11/27/18 11/27/18 Range/Units 06:39 06:39 WBC 1.09 L* (3.98-10.04) K/mm3 RBC 2.71 L (3.98-5.22) M/mm3 Hgb 7.9 L (11.2-15.7) gm/L Hct 23.3 L (34.1-44.9) % MCV 86.0 (79.4-94.8) fl MCH 29.2 (25.6-32.2) pg MCHC 33.9 (32.2-35.5) g/dl RDW Std Deviation 38.4 (36.4-46.3) fL Plt Count 9 L* (182-369) K/mm3 MPV TNP Neut % (Auto) 0 L (34.0-71.1) % Lymph % (Auto) 54.1 H (19.3-51.7) % [place] % (Auto) 45.0 H (4.7-12.5) % Eos % (Auto) 0.9 (0.7-5.8) Baso % (Auto) 0.0 L (0.1-1.2) % Neut # (Auto) 0.00 L (1.56-6.13) K/mm3 Lymph # (Auto) 0.59 L (1.18-3.74) K/mm3 [place] # (Auto) 0.49 H (0.24-0.36) K/mm3 Eos # (Auto) 0.01 L (0.04-0.36) K/mm3 Baso # (Auto) 0.00 L (0.01-0.08) K/mm3 Manual Slide Review Abnormal smear Sodium 140 (136-145) mEq/L Potassium 3.7 (3.5-5.1) mEq/L Chloride 106 (98-107) mEq/L Carbon Dioxide 22 (21-32) mEq/L Anion Gap 15.7 H (5-15) BUN 15 (7-18) mg/dL Creatinine 0.8 (0.55-1.02) mg/dL Est Cr Clr Drug Dosing 53.38 mL/min Estimated GFR (MDRD) > 60 (>60) mL/min BUN/Creatinine Ratio 18.8 H (14-18) Glucose 115 (83-115) mg/dL Calcium 8.5 (8.5-10.1) mg/dL Magnesium 1.9 (1.8-2.4) mg/dl Total Bilirubin 0.7 (0.2-1.0) mg/dL AST 10 L (15-37) U/L ALT 15 (14-59) U/L Alkaline Phosphatase 94 (46-116) U/L C-Reactive Protein 16.3 H* (<1.0) mg/dL Total Protein 6.9 (6.4-8.2) g/dl Albumin 2.9 L (3.4-5.0) g/dl Globulin 4.0 gm/dL Albumin/Globulin Ratio 0.7 L (1-2) Venkata Results Last 24 Hours: Microbiology 11/26/18 16:05 Aerobic Blood Culture - Preliminary Blood - Venous - Lab Draw NO GROWTH AFTER 1 DAY Anaerobic Blood Culture - Preliminary NO GROWTH AFTER 1 DAY 11/26/18 16:00 Aerobic Blood Culture - Preliminary Blood - Venous NO GROWTH AFTER 1 DAY Anaerobic Blood Culture - Preliminary NO GROWTH AFTER 1 DAY 11/26/18 16:07 Influenza Type A Antigen Screen - Final Nasopharyngeal Swab NEGATIVE INFLUENZA A VIRUS AG Influenza Type B Antigen Screen - Final NEGATIVE INFLUENZA B VIRUS AG Med Orders - Current: Current Medications Acetaminophen (Tylenol) 650 mg PO Q4H PRN PRN Reason: Pain (Mild 1-3)/fever Acyclovir (Zovirax) 400 mg PO BID [facility] Last Admin: 11/27/18 09:40 Dose: 400 mg Albuterol (Proventil Neb Soln) 2.5 mg NEB Q2H PRN PRN Reason: Shortness Of Breath/wheezing Albuterol/Ipratropium (Duoneb 3.0-0.5 Mg/3 Ml) 3 ml NEB Q4H PRN PRN Reason: Shortness Of Breath/wheezing Bisacodyl (Dulcolax) 5 mg PO DAILY PRN PRN Reason: Constipation Dexamethasone (Dexamethasone) 4 mg IVPUSH Q8H [facility] Stop: 11/28/18 09:31 Last Admin: 11/27/18 17:09 Dose: 4 mg Docusate Sodium (Colace) 100 mg PO BID PRN PRN Reason: Constipation Famotidine (Pepcid) 20 mg PO BID [facility] Last Admin: 11/27/18 09:38 Dose: Not Given Fluconazole (Diflucan) 200 mg PO DAILY [facility] Last Admin: 11/27/18 09:40 Dose: 200 mg Hydromorphone HCl (Dilaudid) 0.25 mg IVPUSH Q2H PRN PRN Reason: Pain (severe 7-10) Meropenem/Sodium Chloride 500 (mg/ Premix) 50 mls @ 100 mls/hr IV Q8H [facility] Last Admin: 11/27/18 15:24 Dose: 100 mls/hr Promethazine HCl 6.25 mg/ (Sodium Chloride) 50.25 mls @ 100 mls/hr IV Q6H PRN PRN Reason: Nausea/Vomiting Loratadine (Claritin) 10 mg PO DAILY [facility] Stop: 11/29/18 09:01 Magnesium Hydroxide (Milk Of Magnesia) 30 ml PO Q12H PRN PRN Reason: Constipation Metoprolol Tartrate (Lopressor) 5 mg IVPUSH Q4H PRN PRN Reason: Tachycardia Polyethylene Glycol (Miralax) 17 gm PO DAILY PRN PRN Reason: Constipation Promethazine HCl (Phenergan) 25 mg PO Q6H PRN PRN Reason: Nausea/Vomiting Saccharomyces Boulardii (Florastor) 250 mg PO BID [facility] Last Admin: 11/27/18 09:40 Dose: 250 mg Senna/Docusate Sodium (Senna Plus) 1 tab PO BID PRN PRN Reason: Constipation Discontinued Medications Acetaminophen (Tylenol) 325 mg PO NOW ONE Stop: 11/26/18 15:41 Last Admin: 11/26/18 16:26 Dose: 325 mg Diphenhydramine HCl (Benadryl) 25 mg IVPUSH ONETIME ONE Stop: 11/27/18 09:24 Last Admin: 11/27/18 09:51 Dose: 25 mg Famotidine (Pepcid) 20 mg IVPUSH ONETIME ONE Stop: 11/27/18 09:24 Last Admin: 11/27/18 09:44 Dose: 20 mg Furosemide (Lasix) 20 mg IVPUSH NOW ONE Stop: 11/27/18 16:07 Last Admin: 11/27/18 16:57 Dose: Not Given Meropenem 1 gm/ Sodium (Chloride) 100 mls @ 200 mls/hr IV ONETIME ONE Stop: 11/26/18 16:10 Last Admin: 11/26/18 16:24 Dose: 200 mls/hr Sodium Chloride (Normal Saline) 1,000 mls @ 1,000 mls/hr IV ONETIME ONE Stop: 11/26/18 16:47 Last Admin: 11/26/18 16:22 Dose: 1,000 mls/hr Meropenem 1 gm/ Sodium (Chloride) 100 mls @ 200 mls/hr IV Q8H [facility] Last Admin: 11/27/18 07:43 Dose: Not Given Sodium Chloride (Normal Saline) 1,000 mls @ 100 mls/hr IV ASDIRECTED [facility] Last Admin: 11/27/18 11:53 Dose: 100 mls/hr - Exam Quality Assessment: DVT Prophylaxis General: Alert, Oriented, Cooperative HEENT: Pupils Equal, Pupils Reactive, EOMI, Mucous Membr. Moist/[place] Neck: Supple Lungs: Clear to Auscultation, Normal Respiratory Effort Cardiovascular: Regular Rate, Regular Rhythm GI/Abdominal Exam: Normal Bowel Sounds, Soft, Non-Tender, No Organomegaly, No Distention, No Abnormal Bruit, No Mass, Pelvis Stable (Female) Exam: Deferred Back Exam: Normal Inspection Extremities: Normal Inspection, Normal Range of Motion, Non-Tender, No Pedal Edema, Normal Capillary Refill Peripheral Pulses: 2+: Posterior Tibial (L), Posterior Tibial (R), Dorsalis Pedis (L), Dorsalis Pedis (R) Skin: Warm, Dry, Intact, Other (petechia L arm, leg, inside mouth) Neurological: No New Focal Deficit Psy/Mental Status: Alert, Normal Affect, Normal Mood - Problem List & Annotations (1) Neutropenic fever SNOMED Code(s): 983490244 Code(s): D70.9 - NEUTROPENIA, UNSPECIFIED; R50.81 - FEVER PRESENTING WITH CONDITIONS CLASSIFIED ELSEWHERE Status: Acute Priority: High Current Visit : Yes (2) Pancytopenia SNOMED Code(s): 546350348 Code(s): D61.818 - OTHER PANCYTOPENIA Status: Acute Priority: High Current Visit: Yes (3) Tachycardia SNOMED Code(s): 2858432 Code(s): R00.0 - TACHYCARDIA, UNSPECIFIED Status: Acute Priority: High Current Visit: Yes - Problem List Review Problem List Initiated/Reviewed/Updated: Yes - My Orders Last 24 Hours: My Active Orders 11/26/18 20:47 May Shower [RC] ASDIRECTED Oxygen Therapy [RC] PRN Up With Assistance [RC] ASDIRECTED VTE/DVT Education [RC] DAILY Vital Signs [RC] Q4HR Consult to Case Management/[employer] Hanger [CONS] Routine Consult to Spiritual Care [CONS] Routine OT Evaluation and Treatment [CONS] Routine PT Evaluation and Treatment [CONS] Routine Respiratory Care Assess and Treatment [CONS] Routine Acetaminophen [Tylenol] 650 mg PO Q4H PRN Albuterol [Proventil Neb Soln] 2.5 mg NEB Q2H PRN Albuterol/Ipratropium [DuoNeb 3.0-0.5 MG/3 ML] 3 ml NEB Q4H PRN Bisacodyl [Dulcolax] 5 mg PO DAILY PRN Docusate Sodium [Colace] 100 mg PO BID PRN Docusate Sodium/Sennosides [Senna Plus] 1 tab PO BID PRN HYDROmorphone [Dilaudid] 0.25 mg IVPUSH Q2H PRN Magnesium Hydroxide [Milk of Magnesia] 30 ml PO Q12H PRN Polyethylene Glycol 3350 [MiraLAX] 17 gm PO DAILY PRN 11/26/18 21:00 Famotidine [Pepcid] 20 mg PO BID Saccharomyces Boulardii [Florastor] 250 mg PO BID 11/26/18 21:04 Intake and Output [RC] 04,16 11/26/18 21:06 RT Aerosol Therapy [RC] ASDIRECTED 11/26/18 21:08 Promethazine [Phenergan] 25 mg PO Q6H PRN Promethazine [Phenergan] 6.25 mg Sodium Chloride 0.9% [Normal Saline] 50 ml IV Q6H 11/26/18 23:47 Metoprolol Tartrate [Lopressor] 5 mg IVPUSH Q4H PRN 11/27/18 00:00 Meropenem Premix [Meropenem] 500 mg Premix Bag 1 bag IV Q8H 11/27/18 09:00 Acyclovir [Zovirax] 400 mg PO BID Fluconazole [Diflucan] 200 mg PO DAILY 11/27/18 16:06 RED BLOOD CELLS LP [BBK] Stat TYPE AND SCREEN [BBK] Stat Transfuse PRBC [Transfuse Red Blood Cells] [COMM] Stat 11/27/18 16:07 Verify Patient Consent Obtain [RC] Q6HR 11/27/18 20:31 Resuscitation Status Routine 11/28/18 05:11 BASIC METABOLIC PANEL,BMP [CHEM] AM C-REACTIVE PROTEIN [CHEM] AM CBC WITH AUTO DIFF [HEME] AM MAGNESIUM [CHEM] AM 11/29/18 05:11 BASIC METABOLIC PANEL,BMP [CHEM] AM C-REACTIVE PROTEIN [CHEM] AM CBC WITH AUTO DIFF [HEME] AM MAGNESIUM [CHEM] AM 11/30/18 05:11 BASIC METABOLIC PANEL,BMP [CHEM] AM C-REACTIVE PROTEIN [CHEM] AM CBC WITH AUTO DIFF [HEME] AM MAGNESIUM [CHEM] AM 12/01/18 05:11 BASIC METABOLIC PANEL,BMP [CHEM] AM C-REACTIVE PROTEIN [CHEM] AM CBC WITH AUTO DIFF [HEME] AM MAGNESIUM [CHEM] AM 12/02/18 05:11 BASIC METABOLIC PANEL,BMP [CHEM] AM - Plan Plan:: Assessment/Plan: Acute: Neutropenic Fever, Improving * 2/2 plt infusion reaction * She was getting platelets and PRBCs when the fever and confusion started * Risk factor: h/o infusion reaction, AML * Oncologist Dr. Anaya recommendations per ED: * Blood cultures negative x24H * Meropenem until the cultures come back normal Pancytopenia, Improving but Worsening Anemia * Acute on Chronic * 2/2 AML * Dr. Anaya labs showed WBC 0.8-->1.09, Hgb 8.3-->7.9, plts 4-->9 * Gets transfusions from Dr. Anaya for anemia, leukopenia and thrombocytopenia: * Dr. Anaya recommends 2U blood transfusion while here * Unfortunately, she has antibodies and blood must be ordered from out of town. May take up to a couple of days. Jaw Pain/Black tongue * Pt c/o jaw pain, "blisters" inside her mouth, black tongue that brushing does not get rid of * She is unsure for how long she has had these symptoms * Difficult to eat hard foods d/t pain; denies sensitivity to hot/cold * Unsure of last visit to PCP or dentist * States oral care is good, except difficult d/t bleeding * Recommend f/u with PCP, oncologist, and dentist * She also c/o tongue and neck swelling today (not appreciable on exam) so intravenous steroid, H1B and H2B started. Resolved: Tachycardia * 2/2 above * Monitor Chronic: AML (currently not being treated) Anemia, Leukopenia and Thrombocytopenia GERD h/o appendectomy h/o cholecystectomy Plan: Admit to Medical Floor Neutropenic Precautions Routine AM Labs Heart Healthy Diet DVT/GI prophylaxis CM/SW PT/OT Code Status: Full Code; PCP: Dr. Anderson Likely D/C after 48H of negative blood cultures
[2018-11-28] MEDS: Dexamethasone 4 MG/ML SDV IVPUSH SCH ×2 (00:38→08:38)
[2018-11-28] MEDS: Meropenem Premix 500 MG in Premix Bag 1 BAG IV SCH ×3 (00:38→16:34)
[2018-11-28] MEDS: Fluconazole 100 MG Tab PO SCH (08:39)
[2018-11-28] MEDS: Saccharomyces Boulardii (Probiotic) 250 MG Cap PO SCH (08:39)
[2018-11-28] MEDS: Famotidine 20 MG Tab PO SCH (08:39)
[2018-11-28] MEDS: Acyclovir 200 MG Cap PO SCH (08:39)
[2018-11-28] MEDS ORDERED: Loratadine 10 MG Tab PO SCH (09:00)
[2018-11-28] MEDS ORDERED: Sodium Chloride 0.9% 250 ML ONE (11:08)
[2018-11-28] MEDS ORDERED: Sodium Chloride 0.9% 250 ML IV SCH (11:45)
--- NOTE | 2018-11-28 15:06 | PCM.DCSUM1 ---
Discharge Summary - Hospital Course HPI Initial Comments: The patient presents from surgery for a fever, confusion and tachycardia. She has a history of AML. She is not being treated at this point. She is advanced but she is getting transfusions from Dr Anaya for anemia, leukopenia and thrombocytopenia. She was getting platelets and PRBCs when the fever started. She did get confused right away. Dr Anaya repeated some labs and her WBC was 0.8 and Hgb was 8.3. Her platelets were 4. Her CMP looked good. I called him and he recommended blood cultures and mirepenum until the cultures came back normal. She has no chest pain. She has been a little short of breath. She has no abdominal pain, nausea or vomiting. She has no dysuria. Diagnosis: Stroke: No Modified Rains Scale: No Symptoms at All Modified Rains Scale Score: 0 - Discharge Data Discharge Date: 11/28/18 (ADMIT 11/26/18) Discharge Disposition: Home, Self-Care 01 Condition: Stable - Discharge Diagnosis/Problem(s) (1) Neutropenic fever SNOMED Code(s): 397459638 ICD Code: D70.9 - NEUTROPENIA, UNSPECIFIED; R50.81 - FEVER PRESENTING WITH CONDITIONS CLASSIFIED ELSEWHERE Status: Acute Priority: High Current Visit : Yes (2) Pancytopenia SNOMED Code(s): 427063447 ICD Code: D61.818 - OTHER PANCYTOPENIA Status: Acute Priority: High Current Visit: Yes (3) Tachycardia SNOMED Code(s): 9330618 ICD Code: R00.0 - TACHYCARDIA, UNSPECIFIED Status: Acute Priority: High Current Visit: Yes - Patient Summary/Data Operative Procedure(s) Performed: none Complications: none Consults: Consultations 11/26/18 20:47 Consult to Case Management/Catering Chef [CONS] Routine Consult to Spiritual Care [CONS] Routine OT Evaluation and Treatment [CONS] Routine PT Evaluation and Treatment [CONS] Routine Respiratory Care Assess and Treatment [CONS] Routine Labs Pending at D/C: none Recommended Follow-up Testing/Procedures: F/U with PCP in 7-10 days F/U with oncologist, Dr. Anaya, for further information/progonisis/treatment of AML F/U with dentist regarding black tongue/jaw pain Planned Operative Procedure(s) after DC: none Hospital Course: Assessment/Plan: Acute: Neutropenic Fever, Improving 2/2 plt infusion reaction She was getting platelets and PRBCs when the fever and confusion started Risk factor: h/o infusion reaction, AML Oncologist Dr. Anaya recommendations per ED: Blood cultures negative x24H Meropenem until the cultures come back normal Pancytopenia, Improving Acute on Chronic 2/[address] Anaya labs showed WBC 0.8-->1.09, Hgb 8.3-->7.9-->9.2, plts 4-->[address] Anaya for anemia, leukopenia and thrombocytopenia: Dr. Anaya recommends 2U blood transfusion while here Unfortunately, she has antibodies and blood must be ordered from out of town. May take up to a couple of days. 1.5 U transfused today Jaw Pain/Black tongue Pt c/o jaw pain, "blisters" inside her mouth, black tongue that brushing does not get rid of She is unsure for how long she has had these symptoms Difficult to eat hard foods d/t pain; denies sensitivity to hot/cold Unsure of last visit to PCP or dentist States oral care is good, except difficult d/t bleeding Recommend f/u with PCP, oncologist, and dentist She also c/o tongue and neck swelling today (not appreciable on exam) so intravenous steroid, H1B and H2B started. Resolved: Tachycardia 2/2 above Monitor Chronic: AML (currently not being treated) Anemia, Leukopenia and Thrombocytopenia GERD h/o appendectomy h/o cholecystectomy Plan: Admit to Medical Floor Neutropenic Precautions Routine AM Labs Heart Healthy Diet DVT/GI prophylaxis CM/SW PT/OT Code Status: Full Code; PCP: Dr. Anderson Likely D/C after 48H of negative blood cultures Vonnie did OK here after being admitted for possible transfusion reaction with fever and confusion. She has a h/o AML and gets platelet transfusions with her oncologist, Dr. Anaya. She was sent to the ED and subsequently admitted for blood cultures and to start Meropenem per Dr. Anaya' recommendation. Blood cultures were negative x48H and Meropenem was D/C'd. However, while here, her anemia worsened with Hgb dropping to 7.[address] Anaya recommended she be transfused with 2U PRBCs. She received 1.5U of PRBCs and stated she felt much better, with her Hgb improving to 9.2. Antibodies were unfortunately not checked prior to the transfusion d/t lab error, so the full 2U were not given. Benadryl, Tylenol and Dexamethasone were given to help prevent any adverse reaction. She seemed to be doing well s/p transfusion, and therefore will be D/C'd home tonight. Recommend f/u with her oncologist for future transfusion/AML questions and concerns. She also complained of jaw pain and black tongue while here, so we also recommend f/u with PCP and dentist. - Patient Instructions Diet: Usual Diet as Tolerated Activity: As Tolerated Driving: Do Not Drive Showering/Bathing: May Shower Notify Provider of: Fever, Increased Pain, Swelling and Redness, Nausea and/or Vomiting - Discharge Plan *PRESCRIPTION DRUG MONITORING PROGRAM REVIEWED*: Not Applicable *COPY OF PRESCRIPTION DRUG MONITORING REPORT IN PATIENT FAVIOLA: Not Applicable Home Medications: Home Meds Acyclovir [Zovirax] 400 mg PO BID 04/12/18 [History] Fluconazole [Diflucan] 200 mg PO DAILY 04/12/18 [History] Levofloxacin 500 mg PO DAILY 04/12/18 [History] Oxygen Therapy Mode: Room Air Patient Handouts: Blood Transfusion, Adult, [id number], Anemia, Neutropenia Referrals: Tony Anderson MD [Primary Care Provider] - 12/05/18 2:30 pm (Please follow up with Dr Anderson on at 1430.) Bryson Anaya MD [Ordering Only Provider] - 12/04/18 8:30 am (Please follow up with Dr. Anaya on at 0830.) - Discharge Summary/Plan Comment DC Time >30 min.: Yes (40) - General Info Date of Service: 11/28/18 Admission Dx/Problem (Free Text: Admission Diagnosis/Problem Admission Diagnosis/Problem Neutropenia Subjective Update: In to see Vonnie. She is laying in bed visiting with her daughter. She has no current complaints and states she is "feeling much better" after receiving 1.5U of PRBCs. Antibodies were unfortunately not checked prior to the transfusion d/ t apparent lab error, so the treatment was stopped and the full 2U were not given. Benadryl, Tylenol and Dexamethasone were given to help prevent any adverse reaction. Repeat Hgb improved from 7.7-->9.2. She is being monitored in the meantime, but seems to be doing well. If she continues to do well, she will likely D/C tonight, as she is anxious to return home. Recommend f/u with her oncologist for future transfusion/AML questions and concerns. Also recommend seeing PCP and dentist regarding black tongue and jaw pain. No other concerns from nursing. Functional Status: Reports: Pain Controlled, Tolerating Diet, Ambulating, Urinating - Review of Systems General: Reports: No Symptoms. Denies: Fever, Chills HEENT: Reports: No Symptoms Pulmonary: Reports: No Symptoms. Denies: Shortness of Breath, Cough Cardiovascular: Reports: No Symptoms. Denies: Chest Pain Gastrointestinal: Reports: No Symptoms. Denies: Abdominal Pain, Diarrhea, Nausea, Vomiting Genitourinary: Reports: No Symptoms Musculoskeletal: Reports: No Symptoms Skin: Reports: No Symptoms Neurological: Reports: No Symptoms. Denies: Confusion Psychiatric: Reports: No Symptoms. Denies: Confusion - Patient Data Vitals - Most Recent: Last Vital Signs Temp 98 F 11/28/18 13:51 Pulse 71 11/28/18 14:19 Resp 16 11/28/18 14:19 BP 127/80 11/28/18 14:19 Pulse Ox 98 11/28/18 14:19 Weight - Most Recent: 136 lb 8 oz I&O - Last 24 hours: Intake & Output 11/28/18 11/28/18 11/28/18 06:59 14:59 22:59 Intake Total 250 780 Balance 250 780 Lab Results - Last 24 hrs: Laboratory Results - last 24 hr 11/27/18 11/28/18 11/28/18 Range/Units 20:45 06:09 06:12 WBC 0.93 L* (3.98-10.04) K/mm3 RBC 2.64 L (3.98-5.22) M/mm3 Hgb 7.7 L (11.2-15.7) gm/L Hct 22.4 L (34.1-44.9) % MCV 84.8 (79.4-94.8) fl MCH 29.2 (25.6-32.2) pg MCHC 34.4 (32.2-35.5) g/dl RDW Std Deviation 37.4 (36.4-46.3) fL Plt Count 6 L* (182-369) K/mm3 MPV TNP Neut % (Auto) 0 L (34.0-71.1) % Lymph % (Auto) 62.4 H (19.3-51.7) % [place] % (Auto) 37.6 H (4.7-12.5) % Eos % (Auto) 0 L (0.7-5.8) Baso % (Auto) 0.0 L (0.1-1.2) % Neut # (Auto) 0.00 L (1.56-6.13) K/mm3 Lymph # (Auto) 0.58 L (1.18-3.74) K/mm3 [place] # (Auto) 0.35 (0.24-0.36) K/mm3 Eos # (Auto) 0.00 L (0.04-0.36) K/mm3 Baso # (Auto) 0.00 L (0.01-0.08) K/mm3 Manual Slide Review Abnormal smear Sodium 140 (136-145) mEq/L Potassium 3.9 (3.5-5.1) mEq/L Chloride 107 (98-107) mEq/L Carbon Dioxide 21 (21-32) mEq/L Anion Gap 15.9 H (5-15) BUN 18 (7-18) mg/dL Creatinine 0.8 (0.55-1.02) mg/dL Est Cr Clr Drug Dosing 53.38 mL/min Estimated GFR (MDRD) > 60 (>60) mL/min BUN/Creatinine Ratio 22.5 H (14-18) Glucose 208 H (83-115) mg/dL Calcium 8.7 (8.5-10.1) mg/dL Magnesium 1.9 (1.8-2.4) mg/dl C-Reactive Protein 11.4 H* (<1.0) mg/dL Blood Type O POSITIVE Gel Antibody Screen Positive Crossmatch See Detail MARLO Results - Last 24 hrs: Microbiology 11/26/18 16:05 Aerobic Blood Culture - Preliminary Blood - Venous - Lab Draw NO GROWTH AFTER 1 DAY Anaerobic Blood Culture - Preliminary NO GROWTH AFTER 1 DAY 11/26/18 16:00 Aerobic Blood Culture - Preliminary Blood - Venous NO GROWTH AFTER 1 DAY Anaerobic Blood Culture - Preliminary NO GROWTH AFTER 1 DAY Med Orders - Current: Current Medications Acetaminophen (Tylenol) 650 mg PO Q4H PRN PRN Reason: Pain (Mild 1-3)/fever Last Admin: 11/28/18 14:21 Dose: 650 mg Acyclovir (Zovirax) 400 mg PO BID [facility] Last Admin: 11/28/18 08:39 Dose: 400 mg Albuterol (Proventil Neb Soln) 2.5 mg NEB Q2H PRN PRN Reason: Shortness Of Breath/wheezing Albuterol/Ipratropium (Duoneb 3.0-0.5 Mg/3 Ml) 3 ml NEB Q4H PRN PRN Reason: Shortness Of Breath/wheezing Bisacodyl (Dulcolax) 5 mg PO DAILY PRN PRN Reason: Constipation Docusate Sodium (Colace) 100 mg PO BID PRN PRN Reason: Constipation Famotidine (Pepcid) 20 mg PO BID [facility] Last Admin: 11/28/18 08:39 Dose: 20 mg Fluconazole (Diflucan) 200 mg PO DAILY [facility] Last Admin: 11/28/18 08:39 Dose: 200 mg Hydromorphone HCl (Dilaudid) 0.25 mg IVPUSH Q2H PRN PRN Reason: Pain (severe 7-10) Meropenem/Sodium Chloride 500 (mg/ Premix) 50 mls @ 100 mls/hr IV Q8H [facility] Last Admin: 11/28/18 08:38 Dose: 100 mls/hr Promethazine HCl 6.25 mg/ (Sodium Chloride) 50.25 mls @ 100 mls/hr IV Q6H PRN PRN Reason: Nausea/Vomiting Sodium Chloride (Normal Saline) 250 mls @ 75 mls/hr IV ASDIRECTED [facility] Loratadine (Claritin) 10 mg PO DAILY [facility] Stop: 11/29/18 09:01 Last Admin: 11/28/18 08:39 Dose: 10 mg Magnesium Hydroxide (Milk Of Magnesia) 30 ml PO Q12H PRN PRN Reason: Constipation Metoprolol Tartrate (Lopressor) 5 mg IVPUSH Q4H PRN PRN Reason: Tachycardia Polyethylene Glycol (Miralax) 17 gm PO DAILY PRN PRN Reason: Constipation Promethazine HCl (Phenergan) 25 mg PO Q6H PRN PRN Reason: Nausea/Vomiting Saccharomyces Boulardii (Florastor) 250 mg PO BID [facility] Last Admin: 11/28/18 08:39 Dose: 250 mg Senna/Docusate Sodium (Senna Plus) 1 tab PO BID PRN PRN Reason: Constipation Discontinued Medications Acetaminophen (Tylenol) 325 mg PO NOW ONE Stop: 11/26/18 15:41 Last Admin: 11/26/18 16:26 Dose: 325 mg Dexamethasone (Dexamethasone) 4 mg IVPUSH Q8H LESIA Stop: 11/28/18 09:31 Last Admin: 11/28/18 08:38 Dose: 4 mg Diphenhydramine HCl (Benadryl) 25 mg IVPUSH ONETIME ONE Stop: 11/27/18 09:24 Last Admin: 11/27/18 09:51 Dose: 25 mg Famotidine (Pepcid) 20 mg IVPUSH ONETIME ONE Stop: 11/27/18 09:24 Last Admin: 11/27/18 09:44 Dose: 20 mg Furosemide (Lasix) 20 mg IVPUSH NOW ONE Stop: 11/27/18 16:07 Last Admin: 11/27/18 16:57 Dose: Not Given Meropenem 1 gm/ Sodium (Chloride) 100 mls @ 200 mls/hr IV ONETIME ONE Stop: 11/26/18 16:10 Last Admin: 11/26/18 16:24 Dose: 200 mls/hr Sodium Chloride (Normal Saline) 1,000 mls @ 1,000 mls/hr IV ONETIME ONE Stop: 11/26/18 16:47 Last Admin: 11/26/18 16:22 Dose: 1,000 mls/hr Meropenem 1 gm/ Sodium (Chloride) 100 mls @ 200 mls/hr IV Q8H [facility] Last Admin: 11/27/18 07:43 Dose: Not Given Sodium Chloride (Normal Saline) 1,000 mls @ 100 mls/hr IV ASDIRECTED [facility] Last Admin: 11/27/18 11:53 Dose: 100 mls/hr Sodium Chloride (Normal Saline) Confirm Administered Dose 250 mls @ as directed .ROUTE .STK-MED ONE Stop: 11/28/18 11:09 Last Admin: 11/28/18 11:37 Dose: 75 mls/hr - Exam Quality Assessment: Reports: DVT Prophylaxis General: Reports: Alert, Oriented, Cooperative, No Acute Distress HEENT: Reports: Pupils Equal, Pupils Reactive, EOMI, Mucous Membr. Moist/[place] Neck: Reports: Supple Lungs: Reports: Clear to Auscultation, Normal Respiratory Effort Cardiovascular: Reports: Regular Rate, Regular Rhythm GI/Abdominal Exam: Normal Bowel Sounds, Soft, Non-Tender, No Organomegaly, No Distention, No Abnormal Bruit, No Mass, Pelvis Stable (Female) Exam: Deferred Rectal (Female) Exam: Deferred Back Exam: Reports: Normal Inspection Extremities: Normal Inspection, Normal Range of Motion, Non-Tender, No Pedal Edema, Normal Capillary Refill Skin: Reports: Warm, Dry, Intact Neurological: Reports: No New Focal Deficit Psy/Mental Status: Reports: Alert, Normal Affect, Normal Mood
[2018-11-28] MEDS ORDERED: diphenhydrAMINE 50 MG/ML SDV IVPUSH ONE (15:53)
[2018-11-28] MEDS ORDERED: Dexamethasone 4 MG/ML SDV IVPUSH SCH (16:00)
[2018-11-28] MEDS ORDERED: Furosemide 20 MG/2 ML VIAL IVPUSH ONE (16:05)
[2018-11-28] MEDS ORDERED: Furosemide 20 MG/2 ML VIAL ONE (16:08)
[2018-11-28] MEDS: Furosemide 20 MG/2 ML VIAL IVPUSH ONE (16:25)
[2018-11-28 16:39] VITALS: BP 150/66
== END 2018-11-28 19:35 | disposition home or self-care (01) | DRG 812 ==
LOC: JD.ED 14:50 → JD.MS 17:15
PROVIDERS: ADMIT Internal Medicine; ATTEND Internal Medicine
DX: T80.89XA Other complications following infusion, transfusion and therapeutic injection, initial encounter (principal); D61.818 Other pancytopenia; C92.00 Acute myeloblastic leukemia, not having achieved remission; Y84.8 Other medical procedures as the cause of abnormal reaction of the patient, or of later complication, without mention of misadventure at the time of the procedure; D70.9 Neutropenia, unspecified; R50.81 Fever presenting with conditions classified elsewhere; R41.0 Disorientation, unspecified; K21.9 Gastro-esophageal reflux disease without esophagitis; H54.7 Unspecified visual loss; Z96.659 Presence of unspecified artificial knee joint; K14.3 Hypertrophy of tongue papillae; K13.79 Other lesions of oral mucosa; R68.84 Jaw pain; Z91.040 Latex allergy status; Z88.0 Allergy status to penicillin; R00.0 Tachycardia, unspecified; R06.02 Shortness of breath; Z91.048 Other nonmedicinal substance allergy status; Z79.899 Other long term (current) drug therapy; Z90.49 Acquired absence of other specified parts of digestive tract; Z90.710 Acquired absence of both cervix and uterus
CPT/HCPCS: 36415; 87040 ×2; 87804 ×2; 96365; 99284; A9270; J2185; J7030; J7040; 80048; 80053; 83735; 85014; 85018; 85025; 86140; 86900; 86901; 97161-GP; 97165-GO; J1100; J1200; J3490; J7050; P9016

== ENCOUNTER 2018-12-27 19:18 | Emergency (ER) | payer MEDICARE, BC ==
[2018-12-27 19:34] VITALS: BP 127/57
--- NOTE | 2018-12-27 19:51 | EDM.PDOC ---
ED HPI GENERAL MEDICAL PROBLEM - General Chief Complaint: General Stated Complaint: BLOOD WORK Time Seen by Provider: 12/27/18 19:21 Source of Information: Reports: Patient History Limitations: Reports: No Limitations - History of Present Illness INITIAL COMMENTS - FREE TEXT/NARRATIVE: This is a 78-year-old female. She has a history of leukemia and she went through chemotherapy sometime ago but since that time she has had a pancytopenia. She was at day surgery today and got a unit of platelets. Her oncologist called the ER and stated that her platelets were 2000. Her hemoglobin was 5.1. They called her and told her to come to the ER so we can transfuse 2 units of packed RBCs. The patient states that she has had no recent bleeding other than when she blows her nose should get a little tinge of blood at times but that was before she got the platelets today. She denies any coughing up blood or blood in her stool denies any black looking stool. She says she feels pretty good for a hemoglobin of 5.1. She says that oftentimes will have to get blood from [place] or [place] because she has antibodies to a lot of different things. We will start the process and see where we need to go. She is not really excited about getting the packed RBCs but she will do with the oncologist says. - Related Data Allergies Allergy/AdvReac Type Severity Reaction Status Date / Time latex Allergy Rash Verified 12/04/18 14:10 palm oil Allergy Cannot Verified 12/04/18 14:10 Remember Penicillins Allergy Cannot Verified 12/04/18 14:10 Remember pollen extracts Allergy Cannot Verified 12/04/18 14:10 Remember Home Meds: Home Meds Acyclovir [Zovirax] 400 mg PO BID 04/12/18 [History] Fluconazole [Diflucan] 200 mg PO DAILY 04/12/18 [History] Levofloxacin 500 mg PO DAILY 04/12/18 [History] Past Medical History HEENT History: Reports: Impaired Vision Other HEENT History: Wears glasses Gastrointestinal History: Reports: GERD 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: Endocrine/Metabolic History: Reports: Other (See Below) Oncologic (Cancer) History: Reports: Leukemia - Past Surgical History HEENT Surgical History: Reports: Cataract Surgery, Tonsillectomy Cardiovascular Surgical History: Reports: Other (See Below) GI Surgical History: Reports: Appendectomy, Cholecystectomy Female Surgical History: Reports: Hysterectomy, Salpingo-Oophorectomy Musculoskeletal Surgical History: Reports: Knee Replacement Oncologic Surgical History: Reports: Other (See Below) Social & Family History - Family History Family Medical History: Noncontributory - Tobacco Use Smoking Status *Q: Former Smoker Used Tobacco, but Quit: Yes Month/Year Tobacco Last Used: 60 - Caffeine Use Caffeine Use: Reports: Coffee, Soda, Tea - Recreational Drug Use Recreational Drug Use: No - Living Situation & Occupation Living situation: Reports: , Alone Occupation: Retired ED ROS GENERAL - Review of Systems Review Of Systems: See Below Constitutional: Reports: Weakness. Denies: Fever, Chills HEENT: Reports: Other (Occasional tinge of redness when she blows her nose) Respiratory: Denies: Shortness of Breath, Cough Cardiovascular: Denies: Chest Pain Endocrine: Reports: No Symptoms GI/Abdominal: Reports: Constipation. Denies: Abdominal Pain, Diarrhea, Hematemesis, Hematochezia, Nausea, Vomiting : Denies: Discharge, Dysuria Musculoskeletal: Reports: No Symptoms Skin: Reports: Pallor, Other (Patient is pale) Neurological: Reports: No Symptoms Psychiatric: Reports: No Symptoms Hematologic/Lymphatic: Reports: Anemia, Easy Bleeding ED EXAM, GENERAL - Physical Exam Exam: See Below Exam Limited By: No Limitations General Appearance: Alert, No Apparent Distress Eye Exam: Bilateral Eye: Normal Inspection Ears: Normal External Exam Nose: Normal Inspection Throat/Mouth: Normal Inspection, Normal Voice, No Airway Compromise Head: Normocephalic Neck: Supple Respiratory/Chest: No Respiratory Distress, Lungs Clear, Normal Breath Sounds Cardiovascular: Regular Rate, Rhythm, No Murmur GI/Abdominal: Soft, Non-Tender Back Exam: Decreased Range of Motion Extremities: Normal Inspection, Normal Range of Motion Neurological: Alert, Oriented Psychiatric: Normal Affect, Normal Mood Skin Exam: Warm, Dry, Pallor Course - Vital Signs Last Recorded V/S: Last Vital Signs Temp 98.2 F 12/27/18 19:31 Pulse 97 12/27/18 19:31 Resp 10 L 12/27/18 19:31 BP 127/57 L 12/27/18 19:31 Pulse Ox 100 12/27/18 19:31 - Orders/Labs/Meds Orders: Active Orders 24 hr Category Date Time Status CBC WITH AUTO DIFF [HEME] Stat Lab 12/27/18 20:11 Results PACKED CELLS [RED BLOOD CELLS LP] [BBK] Stat Lab 12/27/18 20:11 Results TYPE AND SCREEN [BBK] Stat Lab 12/27/18 20:11 Results Transfuse Red Blood Cells [COMM] Stat Oth 12/27/18 19:44 Ordered Labs: Laboratory Tests 12/27/18 12/27/18 Range/Units 20:11 20:11 WBC 1.30 L* (3.98-10.04) K/mm3 RBC 1.97 L (3.98-5.22) M/mm3 Hgb 5.6 L* (11.2-15.7) gm/L Hct 16.8 L (34.1-44.9) % MCV 85.3 (79.4-94.8) fl MCH 28.4 (25.6-32.2) pg MCHC 33.3 (32.2-35.5) g/dl RDW Std Deviation 37.7 (36.4-46.3) fL Plt Count 19 L* (182-369) K/mm3 MPV 10.7 (9.4-12.3) fl Neut % (Auto) 0 L (34.0-71.1) % Lymph % (Auto) 55.4 H (19.3-51.7) % [place] % (Auto) 44.6 H (4.7-12.5) % Eos % (Auto) 0 L (0.7-5.8) Baso % (Auto) 0.0 L (0.1-1.2) % Neut # (Auto) 0.00 L (1.56-6.13) K/mm3 Lymph # (Auto) 0.72 L (1.18-3.74) K/mm3 [place] # (Auto) 0.58 H (0.24-0.36) K/mm3 Eos # (Auto) 0.00 L (0.04-0.36) K/mm3 Baso # (Auto) 0.00 L (0.01-0.08) K/mm3 Blood Type O POSITIVE Crossmatch See Detail - Re-Assessments/Exams Free Text/Narrative Re-Assessment/Exam: 12/27/18 20:[address] Ann who is project construction manager for Dr. Anaya the patient's oncologist. I explained to him that it would require blood from [place] since she has antibodies to numerous things and it might take anywhere from 12-24 hours to get the 2 units. Since the patient is feeling good and she wants to go home he does not have a problem with her going home and then being called once the 2 units are ready and transported here from [place]. I spoke to the patient regarding this and she is good with this. We will wait for the CBC did come back and as long as it is not abnormal for her we will let her go home and call her when the 2 units arrived from [place]. 12/27/18 20:41 I spoke to the patient regarding her blood work. Her white count is 1.3, hemoglobin of 5.6, platelets of 19,000. The patient is wanting to go home and be comfortable at home and we will call her once we get the blood from [place] and then she'll come back to the ER for the transfusion. Departure - Departure Time of Disposition: 20:41 Disposition: Home, Self-Care 01 Condition: Fair Clinical Impression: Thrombocytopenia, Pancytopenia Leukopenia Qualifiers: Leukopenia type: neutropenia Neutropenia type: other Qualified Code(s): D70.8 - Other neutropenia Anemia Qualifiers: Anemia type: unspecified type Qualified Code(s): D64.9 - Anemia, unspecified - Discharge Information *PRESCRIPTION DRUG MONITORING PROGRAM REVIEWED*: Not Applicable *COPY OF PRESCRIPTION DRUG MONITORING REPORT IN PATIENT FAVIOLA: Not Applicable Referrals: Tony Anderson MD [Primary Care Provider] - Forms: ED Department Discharge Additional Instructions: Once the blood work arrives from [place] we will call you at your home and you can come back to the ER and we will transfuse the 2 units of packed RBCs as directed by Dr. Anaya, if there are any problems in between time return to the ER. - My Orders Last 24 Hours: My Active Orders 12/27/18 19:44 Transfuse Red Blood Cells [COMM] Stat 12/27/18 20:11 CBC WITH AUTO DIFF [HEME] Stat PACKED CELLS [RED BLOOD CELLS LP] [BBK] Stat TYPE AND SCREEN [BBK] Stat - Assessment/Plan Last 24 Hours: My Active Orders 12/27/18 19:44 Transfuse Red Blood Cells [COMM] Stat 12/27/18 20:11 CBC WITH AUTO DIFF [HEME] Stat PACKED CELLS [RED BLOOD CELLS LP] [BBK] Stat TYPE AND SCREEN [BBK] Stat
== END 2018-12-27 21:01 | disposition home or self-care (01) ==
LOC: JD.ED 19:18
DX: D70.8 Other neutropenia (principal); D64.9 Anemia, unspecified; D69.6 Thrombocytopenia, unspecified; K21.9 Gastro-esophageal reflux disease without esophagitis; Z79.899 Other long term (current) drug therapy; Z91.018 Allergy to other foods; Z87.891 Personal history of nicotine dependence; Z88.0 Allergy status to penicillin; Z91.09 Other allergy status, other than to drugs and biological substances
CPT/HCPCS: 36415; 85025; 99283; 99284

== ENCOUNTER 2019-01-25 15:10 | Emergency (ER) | payer MEDICARE, BC ==
[2019-01-25 15:47] VITALS: BP 144/76
--- NOTE | 2019-01-25 18:10 | EDM.PDOC ---
<Ute Poole - Last Filed: 01/25/19 21:21> ED HPI GENERAL MEDICAL PROBLEM - General Chief Complaint: Fever Stated Complaint: FEVER Time Seen by Provider: 01/25/19 15:38 Source of Information: Reports: Patient, Family, Old Records History Limitations: Reports: No Limitations - History of Present Illness INITIAL COMMENTS - FREE TEXT/NARRATIVE: 78 yo F brought in today by family for elevated fever today of unknown cause. She states the last time she felt like this "I had pneumonia". Temperature was 101.8 at home and is 100.5 here. She has a h/o AML and just had platelet transfusion on . She c/o BORGES (chronic), F/C, stuffy nose, bloody nose at times (normal after transfusion per pt), dry cough x3-4 weeks, weakness (normal per pt after transfusion x 1 week). Pt denies N/V/D, abdominal pain, any urinary symptoms. Pt family did say she was "wrapped like a burrito" in blankets earlier and thought that may have caused the fever. She denies sick contacts, she stays home and everyone around her wears a mask. No other concerns at this time. PCP is Dr. Anderson. Her Oncologist is Dr. Anaya. 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: Endocrine/Metabolic History: Reports: Other (See Below) Other Endocrine/Metabolic History: leukopenia Hematologic History: Reports: Anemia, Blood Transfusion(s) Other Hematologic History: thrombocytopenia, pancytopenia Oncologic (Cancer) History: Reports: Leukemia - Past Surgical History HEENT Surgical History: Reports: Cataract Surgery, Tonsillectomy Cardiovascular Surgical History: Reports: Other (See Below) Other Cardiovascular Surgeries/Procedures: anemia GI Surgical History: Reports: Appendectomy, Cholecystectomy Female Surgical History: Reports: Hysterectomy, Salpingo-Oophorectomy Musculoskeletal Surgical History: Reports: Knee Replacement Oncologic Surgical History: Reports: Other (See Below) Social & Family History - Family History Family Medical History: Noncontributory - Tobacco Use Smoking Status *Q: Never Smoker Second Hand Smoke Exposure: No - Caffeine Use Caffeine Use: Reports: Coffee - Recreational Drug Use Recreational Drug Use: No - Living Situation & Occupation Living situation: Reports: , Alone Occupation: Retired ED ROS GENERAL - Review of Systems Review Of Systems: See Below Constitutional: Reports: Fever, Chills, Weakness, Fatigue HEENT: Reports: No Symptoms Respiratory: Reports: Cough (dry cough 3-4 weeks). Denies: Shortness of Breath , Sputum Cardiovascular: Reports: No Symptoms. Denies: Chest Pain Endocrine: Reports: Fatigue GI/Abdominal: Denies: Abdominal Pain, Constipation, Diarrhea, Nausea, Vomiting : Reports: No Symptoms Musculoskeletal: Reports: No Symptoms Skin: Reports: Pallor Neurological: Reports: Headache, Weakness Psychiatric: Reports: Agitation Hematologic/Lymphatic: Reports: Anemia ED EXAM, SEPSIS - Physical Exam Exam: See Below Exam Limited By: No Limitations General Appearance: Alert, WD/WN, No Apparent Distress, Thin, Other (pallor) Eye Exam: Bilateral Eye: EOMI, Normal Inspection (pallor of the eyes), PERRL Ears: Normal External Exam, Hearing Grossly Normal Nose: Normal Inspection, Normal Mucosa, No Blood Throat/Mouth: Normal Inspection, Normal Lips, Normal Teeth, Normal Gums, Normal Voice, No Airway Compromise, Other (petechiae of tongue). No: Normal Oropharynx (petechiae) Head: Atraumatic, Normocephalic Neck: Normal Inspection, Supple, Non-Tender, Full Range of Motion Respiratory/Chest: No Respiratory Distress, Lungs Clear, Normal Breath Sounds, No Accessory Muscle Use, Chest Non-Tender Cardiovascular: Normal Peripheral Pulses, Regular Rate, Rhythm, No Edema, No Gallop, No JVD, No Murmur, No Rub Back: Normal Inspection Extremities: Normal Inspection, Normal Range of Motion, Non-Tender, No Pedal Edema, Normal Capillary Refill Neurological: Alert, Oriented, Normal Cognition Psychiatric: Normal Affect, Normal Mood, Other (agitated at times) Skin: Warm, Dry, Intact, Pallor, Petechiae (of tongue/mouth) Course - Vital Signs Last Recorded V/S: Last Vital Signs Temp 100.5 F 01/25/19 15:38 Pulse 113 H 01/25/19 15:38 Resp 18 01/25/19 15:38 BP 144/76 H 01/25/19 15:38 Pulse Ox 97 01/25/19 15:38 - Orders/Labs/Meds Orders: Active Orders 24 hr Category Date Time Status CXR [Chest 2V] [CR] Stat Exams 01/25/19 16:55 Taken CULTURE BLOOD [BC] Stat Lab 01/25/19 17:10 Received CULTURE BLOOD [BC] Stat Lab 01/25/19 17:20 Received Blood Culture x2 Reflex Set [OM.PC] Stat Oth 01/25/19 16:57 Ordered Labs: Laboratory Tests 01/25/19 01/25/19 01/25/19 Range/Units 17:10 17:10 18:25 WBC 4.79 (3.98-10.04) K/mm3 RBC 2.28 L (3.98-5.22) M/mm3 Hgb 6.6 L* (11.2-15.7) gm/L Hct 19.4 L (34.1-44.9) % MCV 85.1 (79.4-94.8) fl MCH 28.9 (25.6-32.2) pg MCHC 34.0 (32.2-35.5) g/dl RDW Std Deviation 38.7 (36.4-46.3) fL Plt Count 4 L* (182-369) K/mm3 MPV 10.9 (9.4-12.3) fl Neut % (Auto) 0 L (34.0-71.1) % Lymph % (Auto) 37.4 (19.3-51.7) % Cottle % (Auto) 62.0 H (4.7-12.5) % Eos % (Auto) 0 L (0.7-5.8) Baso % (Auto) 0.6 (0.1-1.2) % Neut # (Auto) 0.00 L (1.56-6.13) K/mm3 Lymph # (Auto) 1.79 (1.18-3.74) K/mm3 Cottle # (Auto) 2.97 H (0.24-0.36) K/mm3 Eos # (Auto) 0.00 L (0.04-0.36) K/mm3 Baso # (Auto) 0.03 (0.01-0.08) K/mm3 Manual Slide Review Abnormal smear Sodium 136 (136-145) mEq/L Potassium 4.0 (3.5-5.1) mEq/L Chloride 102 (98-107) mEq/L Carbon Dioxide 23 (21-32) mEq/L Anion Gap 15.0 (5-15) BUN 16 (7-18) mg/dL Creatinine 0.9 (0.55-1.02) mg/dL Est Cr Clr Drug Dosing 45.37 mL/min Estimated GFR (MDRD) > 60 (>60) mL/min BUN/Creatinine Ratio 17.8 (14-18) Glucose 158 H (83-115) mg/dL Lactic Acid 0.9 (0.4-2.0) mmol/L Calcium 9.1 (8.5-10.1) mg/dL Magnesium 1.7 L (1.8-2.4) mg/dl Total Bilirubin 0.4 (0.2-1.0) mg/dL AST 18 (15-37) U/L ALT 21 (14-59) U/L Alkaline Phosphatase 107 (46-116) U/L C-Reactive Protein 27.4 H* (<1.0) mg/dL Total Protein 7.6 (6.4-8.2) g/dl Albumin 2.9 L (3.4-5.0) g/dl Globulin 4.7 gm/dL Albumin/Globulin Ratio 0.6 L (1-2) Mycoplasma pneumon IgM Negative (NEGATIVE) Meds: Medications Discontinued Medications Generic Name Dose Route Start Last Admin Trade Name Freq PRN Reason Stop Dose Admin Ceftriaxone Sodium 1 gm 01/25/19 19:47 01/25/19 20:06 Rocephin IM 01/25/19 19:48 1 gm ONETIME ONE Administration Ceftriaxone Sodium 2 gm/ 100 mls @ 200 mls/hr 01/25/19 19:45 Sodium Chloride IV Q24H LESIA Lidocaine HCl 2.1 ml 01/25/19 19:53 01/25/19 20:07 Xylocaine-Mpf 1% INJECT 01/25/19 19:54 2.1 ml ONETIME ONE Administration - Re-Assessments/Exams Free Text/Narrative Re-Assessment/Exam: 01/25/19 17:00 Ordered CBC, CMP, CRP, Blood Cultures, Mycoplasma CXR and UA 01/25/19 17:50 CBC is remarkable for RBC 2.28, Hgb 6.6, Hct 19.4, Plt 4 CMP is remarkable for Glu 158, Mag 1.7, Albumin 2.9 CRP 27.4 01/25/19 18:00 CXR reviewed by myself and Dr. Segura- nothing acute seen. UA pending, have not been able to collect. 01/25/19 18:00 Called [facility] to try and get a hold of her oncologist, Dr. Anaya, for recommendations for treatment regarding her new onset fever and pancytopenia. Unfortunately, he was not on-call. I instead talked to the on-call oncologist Dr. Coats who recommended she be transferred [facility] as we do not have platelets here and that Zosyn x [address]. I then talked to hospitalist Dr. Granados who accepted the patient. 01/25/19 18:24 Discussed transfer with patient and family and they do not want her to go to [facility]. She is especially against [facility] as she had a "bad experience there last time". She did not go into more detail. I offered to call [facility], but she also refused this as well. She stated that her blood work was "normal" for her and that she did not need to go. I explained that the oncologist and I are concerned due to her new onset fever, as she may have an infection (source has yet to be found) but with her blood work she also needs specialized care. She disagrees and states she wants to go home. I told her I could at least discuss the case with our hospitalist here, even though we don't have platelets now, so she could at least get more workup and antibiotics. She states "I'm not staying here and I'm not going to [facility]. I'm going home". I tell her if she does leave, it would be AMA. They are not happy with this and the family requests I call her PCP Dr. Anderson. 01/25/19 18:30 Mycoplasma negative 01/25/19 18:[address] Anderson, who is not training consultant but answered to help. He stated that the blood work was normal for her, but the fever also has him concerned and he agrees she should be transferred. However, he said it is her decision and if she didn't want to go, as she is somewhat on comfort measures and not treating her AML, we could possibly give PRBCs here and start her on an antibiotic before sending her home. 01/25/19 19:[address] Anderson said to the pt and family. At this time she doesn't want treatment and just wants to go home. I told them I would discuss the case with Dr. Segura to see if he could come up with an alternative. 01/25/19 19:[address] transfer to [facility]. Segura saw the patient and family to discuss what they would like to do. He has offered them antibiotics and PRBCs. They do not want a transfusion, but she will take Rocephin while here. Updated Dr. Anderson. He states he will see the patient in clinic Sunday if she would like to follow up with him. I have told the patient and family this and they are very grateful for that plan. 01/25/19 19:43 Transferred full care to Dr. Segura as patient does not want to be transferred/ is refusing my treatment options. Departure - Departure Time of Disposition: 20:18 Disposition: Home, Self-Care 01 Clinical Impression: Thrombocytopenia Anemia Qualifiers: Anemia type: unspecified type Qualified Code(s): D64.9 - Anemia, unspecified Fever Qualifiers: Fever type: due to other condition Qualified Code(s): R50.81 - Fever presenting with conditions classified elsewhere - Discharge Information Referrals: Bryson Anaya MD [Primary Care Provider] - Tony Anderson MD [Physician] - Forms: ED Department Discharge <Chris Segura - Last Filed: 01/26/19 07:12> Course - Orders/Labs/Meds Meds: Medications Discontinued Medications Generic Name Dose Route Start Last Admin Trade Name Freq PRN Reason Stop Dose Admin Ceftriaxone Sodium 1 gm 01/25/19 19:47 01/25/19 20:06 Rocephin IM 01/25/19 19:48 1 gm ONETIME ONE Administration Ceftriaxone Sodium 2 gm/ 100 mls @ 200 mls/hr 01/25/19 19:45 Sodium Chloride IV Q24H LESIA Lidocaine HCl 2.1 ml 01/25/19 19:53 01/25/19 20:07 Xylocaine-Mpf 1% INJECT 01/25/19 19:54 2.1 ml ONETIME ONE Administration - Re-Assessments/Exams Free Text/Narrative Re-Assessment/Exam: 01/26/19 07:06 I took over for Ute. The patient has been notified again of all her test results and she knows she is at 6.6 for her Hgb and 4 for her platelets. She says these are nearly normal for her. She was happy to find she did not have pneumonia. We have ordered blood cultures and gave her a shot of rocephin. I will follow up with her blood cultures. Her and her family would like to go home at this time. I am concerned about her lab results and feel she does need to go to [facility] but I do respect her wishes and I will discharge her home with follow up with Dr Anyaa and Dr Anderson. She is to return if she is worse. Departure - Departure Condition: Fair
[2019-01-25] MEDS ORDERED: cefTRIAXone 2 GM in Sodium Chloride 0.9% 100 ML IV SCH (19:45)
[2019-01-25] MEDS ORDERED: cefTRIAXone 1 GM Vial IM ONE (19:47)
[2019-01-25] MEDS ORDERED: Lidocaine 1% PF 2 ML SDV INJECT ONE (19:53)
--- NOTE | 2019-01-27 06:28 | CR ---
Chest Two views of the chest are obtained. Comparison: Prior chest x-ray of 11/06/18. Left-sided infusion catheter is seen. Minimal scarring is seen within the left mid lung. Slight parenchymal density is noted within the left lung base which is retrocardiac on the PA view in location. Lungs otherwise are clear. Heart size is normal. Tortuous thoracic aorta seen. Bony structures show mild degenerative change at the midthoracic spine with mild scoliosis. Surgical clips are seen from prior cholecystectomy. Impression: 1. Probable mild left lower lobe pneumonia. 2. Other incidental findings as noted above. Diagnostic code #3
== END 2019-01-25 20:18 | disposition home or self-care (01) ==
LOC: JD.ED 15:10
DX: D69.6 Thrombocytopenia, unspecified (principal); D64.9 Anemia, unspecified; K21.9 Gastro-esophageal reflux disease without esophagitis; R50.81 Fever presenting with conditions classified elsewhere; Z91.040 Latex allergy status; Z79.899 Other long term (current) drug therapy
CPT/HCPCS: 36415; 71046; 80053; 83605; 83735; 85025; 86140; 86738; 87040; 96372; 99284; J0696; J2001

== ENCOUNTER 2019-01-28 17:01 | Emergency (ER) | payer MEDICARE, BC ==
[2019-01-28 17:18] VITALS: BP 108/80
[2019-01-28] MEDS ORDERED: Piperacillin/Tazobactam 4.5 GM in Sodium Chloride 0.9% 100 ML IV SCH (17:45)
[2019-01-28] MEDS ORDERED: Sodium Chloride 0.9% 1,000 ML IV SCH (17:45)
[2019-01-28] MEDS ORDERED: Acetaminophen 325 MG Tab PO ONE (17:45)
--- NOTE | 2019-01-28 17:47 | EDM.PDOC ---
ED HPI GENERAL MEDICAL PROBLEM - General Chief Complaint: Fever Stated Complaint: 102 FEVER Time Seen by Provider: 01/28/19 17:15 Source of Information: Reports: Patient, Family History Limitations: Reports: No Limitations - History of Present Illness INITIAL COMMENTS - FREE TEXT/NARRATIVE: The patient presents with a fever. She has a history of AML and has pancytopenia. She had a platelet transfusion last and a few days later she developed a fever. Her WBC was in the normal range. Her Hgb was 6.6. Her platelets were 4. She had no infiltrate on CXR. Ute saw the patient and she talked to [facility] oncologist director of restaurant operations and they wanted the patient down to [place] but she and her sons did not want her to go. I talked to the patient and gave her a shot of rocephin and her blood cultures did not grow out any bacteria. She followed up today with labs. We are trying to obtain them. She continues to have a fever with a temp of 102. She still has some congestion and cough. She has no abdominal pain, nausea or vomiting. Onset: Gradual Duration: Day(s): Severity: Moderate Improves with: Reports: None Worsens with: Reports: None Associated Symptoms: Reports: Cough, Fever/Chills. Denies: Headaches, Nausea/ Vomiting, Shortness of Breath Left Flank Pain Score (Numeric/FACES): 3 - Related Data Allergies Allergy/AdvReac Type Severity Reaction Status Date / Time latex Allergy Rash Verified 01/28/19 17:10 palm oil Allergy Cannot Verified 01/28/19 17:10 Remember pollen extracts Allergy Cannot Verified 01/28/19 17:10 Remember Home Meds: Home Meds Acyclovir [Zovirax] 400 mg PO BID 04/12/18 [History] Fluconazole [Diflucan] 200 mg PO DAILY 04/12/18 [History] Past Medical History HEENT History: Reports: Impaired Vision Other HEENT History: Wears glasses Respiratory History: Reports: Pneumonia, Recurrent Gastrointestinal History: Reports: GERD Genitourinary History: Reports: Other (See Below) Other Genitourinary History: one funtioning kidney. 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: Endocrine/Metabolic History: Reports: Other (See Below) Other Endocrine/Metabolic History: leukopenia Hematologic History: Reports: Anemia, Blood Transfusion(s) Other Hematologic History: thrombocytopenia, pancytopenia Oncologic (Cancer) History: Reports: Leukemia - Infectious Disease History Infectious Disease History: Reports: Measles - Past Surgical History HEENT Surgical History: Reports: Cataract Surgery, Tonsillectomy Cardiovascular Surgical History: Reports: Other (See Below) Other Cardiovascular Surgeries/Procedures: anemia GI Surgical History: Reports: Appendectomy, Cholecystectomy Female Surgical History: Reports: Hysterectomy, Salpingo-Oophorectomy Musculoskeletal Surgical History: Reports: Knee Replacement Social & Family History - Family History Family Medical History: Noncontributory - Tobacco Use Smoking Status *Q: Never Smoker Second Hand Smoke Exposure: No - Caffeine Use Caffeine Use: Reports: Coffee - Recreational Drug Use Recreational Drug Use: No - Living Situation & Occupation Living situation: Reports: , Alone Occupation: Retired ED ROS GENERAL - Review of Systems Review Of Systems: See Below Constitutional: Reports: Fever, Chills HEENT: Reports: No Symptoms Respiratory: Reports: Cough Cardiovascular: Reports: No Symptoms Endocrine: Reports: No Symptoms GI/Abdominal: Reports: No Symptoms : Reports: No Symptoms Musculoskeletal: Reports: No Symptoms ED EXAM, SEPSIS - Physical Exam Exam: See Below Exam Limited By: No Limitations General Appearance: Alert, No Apparent Distress Ears: Normal External Exam Nose: Normal Inspection Head: Atraumatic, Normocephalic Neck: Normal Inspection Respiratory/Chest: No Respiratory Distress, Rhonchi (Left side) Cardiovascular: Regular Rate, Rhythm, No Edema, No Murmur GI/Abdominal Exam: Soft, Non-Tender, No Organomegaly, No Mass Back: Normal Inspection Extremities: Normal Inspection Course - Vital Signs Last Recorded V/S: Last Vital Signs Temp 101.1 F H 01/28/19 17:10 Pulse 122 H 01/28/19 17:10 Resp 36 H 01/28/19 17:10 BP 108/80 01/28/19 17:10 Pulse Ox 92 L 01/28/19 17:10 - Orders/Labs/Meds Orders: Active Orders 24 hr Category Date Time Status Implanted Port Access [RC] DAILY Care 01/28/19 17:40 Active CXR [Chest 1V Frontal] [CR] Stat Exams 01/28/19 17:41 Taken CULTURE BLOOD [BC] Stat Lab 01/28/19 18:05 Received LACTIC ACID [CHEM] Stat Lab 01/28/19 20:09 Ordered Piperacillin/Tazobactam [Piperacil-Tazobact] 4.5 gm Med 01/28/19 17:45 Active Sodium Chloride 0.9% [Normal Saline] 100 ml IV Q8H Sodium Chloride 0.9% [Normal Saline] 1,000 ml Med 01/28/19 17:45 Active IV ASDIRECTED Vancomycin 1.25 gm Med 01/28/19 20:19 Active Sodium Chloride 0.9% [Normal Saline] 250 ml IV ONETIME Medication Orders Piperacillin Sod/Tazobactam (Sod 4.5 gm/ Sodium Chloride) 100 mls @ 25 mls/hr IV Q8H LESIA Last Admin: 01/28/19 18:24 Dose: 25 mls/hr Sodium Chloride (Normal Saline) 1,000 mls @ 100 mls/hr IV ASDIRECTED LESIA Last Admin: 01/28/19 18:15 Dose: 100 mls/hr Vancomycin HCl 1.25 gm/ Sodium (Chloride) 250 mls @ 250 mls/hr IV ONETIME ONE Stop: 01/28/19 21:18 Labs: Laboratory Tests 01/28/19 01/28/19 Range/Units 18:05 19:25 WBC 16.55 H (3.98-10.04) K/mm3 RBC 1.69 L (3.98-5.22) M/mm3 Hgb 4.9 L* D (11.2-15.7) gm/L Hct 14.3 L (34.1-44.9) % MCV 84.6 (79.4-94.8) fl MCH 29.0 (25.6-32.2) pg MCHC 34.3 (32.2-35.5) g/dl RDW Std Deviation 37.7 (36.4-46.3) fL Plt Count 4 L* (182-369) K/mm3 MPV 10.1 (9.4-12.3) fl Neutrophils % (Manual) 0 L (40-60) % Band Neutrophils % 0 (0-10) % Lymphocytes % (Manual) 40 (20-40) % Atypical Lymphs % 0 % Monocytes % (Manual) 24 H (2-10) % Eosinophils % (Manual) 0 L (0.7-5.8) % Basophils % (Manual) 0 L (0.1-1.2) Blast Cells % 36 Platelet Estimate Marked dec Poikilocytosis 1+ slight Anisocytosis 1+ slight Microcytosis 1+ slight Spherocytes Few Ovalocytes 1+ slight RBC Morph Comment Not Reportable Sodium 135 L (136-145) mEq/L Potassium 3.6 (3.5-5.1) mEq/L Chloride 100 (98-107) mEq/L Carbon Dioxide 22 (21-32) mEq/L Anion Gap 16.6 H (5-15) BUN 19 H (7-18) mg/dL Creatinine 1.0 (0.55-1.02) mg/dL Est Cr Clr Drug Dosing 39.20 mL/min Estimated GFR (MDRD) 53 (>60) mL/min BUN/Creatinine Ratio 19.0 H (14-18) Glucose 167 H (83-115) mg/dL Calcium 8.6 (8.5-10.1) mg/dL Total Bilirubin 0.5 (0.2-1.0) mg/dL AST 18 (15-37) U/L ALT 16 (14-59) U/L Alkaline Phosphatase 87 (46-116) U/L Total Protein 6.9 (6.4-8.2) g/dl Albumin 2.1 L (3.4-5.0) g/dl Globulin 4.8 gm/dL Albumin/Globulin Ratio 0.4 L (1-2) Meds: Medications Generic Name Dose Route Start Last Admin Trade Name Freq PRN Reason Stop Dose Admin Piperacillin Sod/Tazobactam 100 mls @ 25 mls/hr 01/28/19 17:45 01/28/19 18:24 Sod 4.5 gm/ Sodium Chloride IV 25 mls/hr Q8H LESIA Administration Sodium Chloride 1,000 mls @ 100 mls/hr 01/28/19 17:45 01/28/19 18:15 Normal Saline IV 100 mls/hr ASDIRECTED LESIA Administration Vancomycin HCl 1.25 gm/ Sodium 250 mls @ 250 mls/hr 01/28/19 20:19 Chloride IV 01/28/19 21:18 ONETIME ONE Discontinued Medications Generic Name Dose Route Start Last Admin Trade Name Freq PRN Reason Stop Dose Admin Acetaminophen 975 mg 01/28/19 17:45 01/28/19 18:15 Tylenol PO 01/28/19 17:46 975 mg NOW ONE Administration - Re-Assessments/Exams Free Text/Narrative Re-Assessment/Exam: 01/28/19 17:56 I had my nurse access the port, IV NS at 150mL/hr, zosyn 4.45 grams IV, culture from her port, and influenza. She had labs at the clinic and my clerk of court will try to obtain them. 01/28/19 20:11 Her CXR shows a left lower lobe infiltrate. The influenza was negative. We have not received the labs from [facility]. I will draw our own. He WBC came back elevated at 16.55. Her Hgb is now down to 4.9. Her platelets are 4. 01/28/19 20:13 Her Na was a little low at 135. Her anion gap was elevated at 16.6. Her glucose was elevated at 167. Dr Anaya's nurse called her today and told her that her counts were low and they will be ordering blood. I talked to my hospitalist here and he was not comfortable keeping her here. I called [facility] in [place] and talked with Dr Machuca and he agreed to the transfer. He did not vancomycin started. I have ordered that. 01/28/19 20:26 I ordered a 30ml/kg bolus. Departure - Departure Time of Disposition: 19:25 Disposition: DC/Tfer to Acute Hospital 02 Condition: Serious Clinical Impression: Thrombocytopenia Pneumonia Qualifiers: Pneumonia type: due to unspecified organism Laterality: right Lung location: upper lobe of lung Qualified Code(s): J18.1 - Lobar pneumonia, unspecified organism Fever Qualifiers: Fever type: due to other condition Qualified Code(s): R50.81 - Fever presenting with conditions classified elsewhere Sepsis Qualifiers: Sepsis type: sepsis due to unspecified organism Qualified Code(s): A41.9 - Sepsis, unspecified organism Anemia Qualifiers: Anemia type: unspecified type Qualified Code(s): D64.9 - Anemia, unspecified AML (acute myeloblastic leukemia) Qualifiers: Leukemia Active/Remission status: without remission Qualified Code(s): C92.00 - Acute myeloblastic leukemia, not having achieved remission - Discharge Information Referrals: Tony Anderson MD [Primary Care Provider] - Forms: ED Department Discharge - My Orders Last 24 Hours: My Active Orders 01/28/19 17:40 Implanted Port Access [RC] DAILY 01/28/19 17:41 CXR [Chest 1V Frontal] [CR] Stat 01/28/19 17:45 Piperacillin/Tazobactam [Piperacil-Tazobact] 4.5 gm Sodium Chloride 0.9% [ Normal Saline] 100 ml IV Q8H Sodium Chloride 0.9% [Normal Saline] 1,000 ml IV ASDIRECTED 01/28/19 18:05 CULTURE BLOOD [BC] Stat 01/28/19 20:09 LACTIC ACID [CHEM] Stat 01/28/19 20:19 Vancomycin 1.25 gm Sodium Chloride 0.9% [Normal Saline] 250 ml IV ONETIME - Assessment/Plan Last 24 Hours: My Active Orders 01/28/19 17:40 Implanted Port Access [RC] DAILY 01/28/19 17:41 CXR [Chest 1V Frontal] [CR] Stat 01/28/19 17:45 Piperacillin/Tazobactam [Piperacil-Tazobact] 4.5 gm Sodium Chloride 0.9% [ Normal Saline] 100 ml IV Q8H Sodium Chloride 0.9% [Normal Saline] 1,000 ml IV ASDIRECTED 01/28/19 18:05 CULTURE BLOOD [BC] Stat 01/28/19 20:09 LACTIC ACID [CHEM] Stat 01/28/19 20:19 Vancomycin 1.25 gm Sodium Chloride 0.9% [Normal Saline] 250 ml IV ONETIME
--- NOTE | 2019-01-29 06:22 | CR ---
Chest: Portable view of the chest was obtained. Comparison: Prior chest x-ray of 01/25/19. Mild increasing density is believed to be present within the left lung base which is slightly more prominent than on previous exam most likely representing pneumonia. Left upper and right lung are clear. Infusion catheter is seen entering from the left side. Heart size at the upper limits of normal. Bony structures are grossly intact. Impression: 1. Findings suspicious for pneumonia within the left lung base slightly more prominent than on prior exam. Diagnostic code #3
== END 2019-01-28 21:35 ==
LOC: JD.ED 17:01
DX: A41.9 Sepsis, unspecified organism (principal); J18.1 Lobar pneumonia, unspecified organism; C92.00 Acute myeloblastic leukemia, not having achieved remission; Z91.040 Latex allergy status; Z91.018 Allergy to other foods; Z79.899 Other long term (current) drug therapy; Z91.09 Other allergy status, other than to drugs and biological substances
CPT/HCPCS: 36415; 71045; 80053; 83605; 85007; 85027; 87040; 87804; 96365; 96366; 96367; 99285; A9270; J2543; J3370; J7030; J7040; J7050; 99284